=== PATIENT | female | born 1950 | race Caucasian/White ===

== ENCOUNTER 2019-09-29 10:30 | Outpatient (RCR) | payer MEDICARE, SELFPAY ==
--- NOTE | 2019-09-01 09:34 | PTOPEVAL ---
PHYSICAL THERAPY EVALUATION AND PLAN OF CARE 09-01-2019 The PT evaluation was completed for the diagnosis of B LE lymphedema. Her plan of treatment is scheduled for 3x/wk for 5 weeks. Thank you for referring Caridad to [facility]. Please review, sign, date and return this plan of care DEA. I agree with and certify that the following plan of care is medically necessary. Referring Physician Date Attending Provider: Neo Briones MD *PT Outpatient Evaluation Start: 09/01/19 08:09 Therapy Assessment Status Assessment Status Assessment Status Evaluation Outpatient Past Medical History Neurological History Hx Neurological Disorders No Significant History Cardiovascular History Hx Hypertension Yes: meds Respiratory History Hx Respiratory Disorders No Significant History Gastrointestinal History Hx Gall Bladder Disease Yes: surgical removal Genitourinary History Hx Genitourinary Disorders No Significant History Musculoskeletal History Hx Orthopedic Surgery Yes: R total shoulder, B carpal tunnel B bunion surgery Hx Other Musculoskeletal Disorders Yes: to see ortho dr Arvizu for R hip consult; osteopenia Hematological History Hx Hematological Disorders No Significant History Endocrine History Hx Endocrine Disorders No Significant History HEENT History Hx Other HEENT Disorders Yes: sinus issues Other History Hx Other Medical Conditions Yes: wt gain 15-20# in wt in past year Evaluation Information Problem Diagnosis B LE lymphedema Onset Jul 2018 Prior Level of Function Activity Level (Last 3 Months) Occupation retired Hand Dominance Right Activity of Daily Living Ability Independent Indoor/Home Mobility Independent Community Mobility Independent Stairs Ability Independent Functional Cognition (Planning, Shopping Independent , Taking Medications) Cooking Yes Cleaning Yes Laundry Yes Shopping Yes Driving Yes Comments Additional Prior Level of Function problems on stairs and get on/ Comments off floor due to R hip; watch grand children, youngest 2 yr old; assist with transportation, occassional baby sitting; decreased walking due to R hip pain; wear shoe orthotics due to flat feet Pain Assessment Timing of Pain Assessment Timing of Pain Assessment Assessment Pain Scale Pain Scale Used
--- NOTE | 2019-09-25 10:24 | PCPTNOTE ---
PHYSICAL THERAPY PROGRESS REPORT 09-25-2019 Ms. Clark has received 11 PT sessions, from August 31 to today, for the diagnosis of B LE lymphedema. Her treatment has included complete decongestive therapy to R and L LE's: manual lymph drainage, intermittent compression pump, multi layer compression wraps and education for lymphedema care-- skin care, diet monitoring, LE exercises and compression garments. She just has obtained and began wearing 2 days ago: R and L lower leg compression garments 30-40 mmHg LE measurements, 64 cm from the bottom of her leg: R LE: at eval: 812.8 cm; on 09-18-19: 771 cm and 09-22-19: 774 cm; L LE: at eval: 791.1cm; on 09-15-19: 816.8 cm; 09-18-19: 816.8 cm and 09-22-19: 782.3 cm: Today, she reports ankles appear to be larger since wearing the compression garment knee highs: spot measurements taken at start sessio : R LE L LE today 09-22-19 today 09-22-19 figure 8 51.5 52.5 52.2 52 8 25 24.5 25.5 24.5 12 29 26 28 26 She would benefit from a home intermittent compression pump, to assist with management of her R and L LE lymphedema. Caridad also has lymphedema of her L arm and breast, with previous treatment at another facility, and is using a compression sleeve on her L UE. Shivani Infante, PT, CLT
--- NOTE | 2019-09-29 11:41 | PTOPEVAL ---
PHYSICAL THERAPY DISCHARGE 09-29-2019 Caridad has received 13 PT sessions, from August 31 to today for the diagnosis of B LE lymphedema. Compared to the initial evaluation: Circumferential measurement, from bottom of the foot to 64 cm, totals have increased: the R LE by 7.2 cm and L LE by 10.9 cm--BUT, the lower leg up to 40 cm is decreased, then thigh has increased. She has obtained compression knee highs: Mediven plus, 30-40 mmHg, calf high with beaded silicone band, 5 extra wide calf, open toe. She is independent donning/doffing them and is tolerating wearing them without any issues. The integrity of her lower leg skin is improved--without any redness and her ankles are visible. The intermittent home compression pump is in the process of being authorized by her insurance for self management of her lymphedema. She has ordered compression linda- Sigvaris compreshort, size X-large Max, which will assist in maintaining her thigh lipedema/lymphedema. Education has been completed for self manual lymph drainage, monitor her skin, compression garments and LE exercises. The goals were achieved, except for the circumferential measurements. Thank you for referring Caridad Clark to [facility]. Please review, sign, date and return this discharge EDA. I agree with and certify that the following plan of care is medically necessary. Referring Physician Date Referring Provider: Neo Briones MD Document 09/29/19 10:28 DEEPA (Rec: 09/29/19 11:06 DEEPA [id number]) Subjective Information Caridad reports: can see ankles Query Text:As Reported By Patient/ now and do not have buldge Family below knees; skin is not tight anymore; do not have any pain, heavy or ache in legs; very pleased with her legs, doing well with compression socks; and agrees to discharge from PT services; Pain Assessment Timing of Pain Assessment Timing of Pain Assessment Assessment Self Report Self Report Pain Level 0 Pain Score Pain Score 0: Self Report Additional Pain Score Comments no heavy or ache in legs Lymphedema Evaluation Skin Inspection Location Left Lower Extremity,Right Lower Extremity Skin Observations Absence of Leg Hair,Foot Sparing Lymphedema Stage I Skin Inspection Comment B lower legs without any redness of skin, no firmness of tissue over legs; B malleoli visible B thighs soft and fluffy tissue; not tender to touch; LE Circumferential Measurement Right LE Lymphedema Side Right Metatarsal Heads (cm) 22.8 Figure 8 of Ankle (cm) 52.8 8 cm From Bottom of Foot (cm) 25 12 cm From Botto
--- NOTE | 2019-10-09 10:26 | PCPTNOTE ---
Addendum to 08/14/29 PT note: Skin over lower legs with hyperpigmentation and splotchy redness throughout.
--- NOTE | 2019-11-22 10:14 | PCPTNOTE ---
Addendum entered by Shivani Infante, PT 11/23/19 11:43: Caridad also reported having fullness in her abdomen and hips, and more firmness/hardness of the tissue of her thighs. This can be a result of the home pump is pushing the fluid to her abdomen and trunk. Original Note: I talked with Caridad on the phone. She stated that she is using the home basic compression pump, doing her self massage and wearing her LE compression garments for the past month. She measured her LE's at the 3 points that I gave her at the last PT session. She stated that all 3 have increased by ~ 2 cm each. Caridad stated that her arms and legs are more swollen and she is concerned about it and what to do to further prevent any more increase. She had received treatment at another facility for her breast and UE lymphedema, prior to therapy here. Discussed with her to continue as she is doing with her self massage, exercises, pump and compression garment. And that I would be in touch with [facility] [employer] about it. Mrs. Clark would benefit from the Flexitouch intermittent compression pump for her UE's and LE's to assist with managing her chronic lymphedema. Shivani Infante, PT, [facility]
== END 2019-10-02 11:21 | disposition home or self-care (01) ==
LOC: ANHPT 10:30
PROVIDERS: PCP Family Medicine; Referring Provider Family Medicine; Visit Provider Family Medicine
DX: I89.0 Lymphedema, not elsewhere classified (principal)
CPT/HCPCS: 29581; 97140; 97161

== ENCOUNTER 2020-05-22 10:00 | Outpatient (RCR) | payer MEDICARE, SELFPAY ==
--- NOTE | 2020-04-16 12:55 | PTOPEVAL ---
PHYSICAL THERAPY EVALUATION AND PLAN OF CARE 04-16-2020 Thank you for referring Caridad Clark to [facility] for the diagnosis of lymphedema. She has a combination of lipedema/ lymphedema in B UE's and UE's. She is most concerned at this time about her thighs, so treatment was initiated for her LE's and when this treatment is completed, her UE's will be addressed.? Caridad is scheduled to be seen for therapy? 2 x/week for 5 weeks. Please review, sign, date and return this plan of care EDA. I agree with and certify that the following plan of care is medically necessary. Referring Physician Date Attending Provider: Neo Briones MD *PT Outpatient Evaluation Document 04/16/20 09:05 DEEPA (Rec: 04/16/20 10:29 DEEPA [id number]) Therapy Assessment Status Assessment Status Assessment Status Evaluation Outpatient Past Medical History Past Medical History Source of Past Medical History Patient Neurological History Hx Neurological Disorders No Significant History Cardiovascular History Hx Hypertension Yes: meds Respiratory History Hx Respiratory Disorders No Significant History Gastrointestinal History Hx Gall Bladder Disease Yes: surgical removal Genitourinary History Hx Genitourinary Disorders No Significant History Musculoskeletal History Hx Orthopedic Surgery Yes: R total shoulder, B carpal tunnel B bunion surgery Hx Other Musculoskeletal Disorders Yes: sacral illiac pain- seeing ortho for- meloxicam; osteopenia Hematological History Hx Hematological Disorders No Significant History Endocrine History Hx Endocrine Disorders No Significant History HEENT History Hx Other HEENT Disorders Yes: sinus issues Other History Hx Other Medical Conditions Yes: weight has been stable, bloated end day Evaluation Information Problem Diagnosis lymphedema Onset February 13, 2020 Diagnostic Tests X-Rays For This Problem No Prior Level of Function Activity Level (Last 3 Months) Occupation retired, active, watches grandchildren Activity of Daily Living Ability Independent Indoor/Home Mobility Independent Community Mobility Independent Stairs Ability Independent Functional Cognition (Planning, Shopping Independent , Taking Medications) Cooking Yes Cleaning Yes Laundry Yes Shopping Yes Driving Yes Pain Assessment Timing of Pain Assessment Timing of Pain Assessment Assessment Pain Scale Pain Scale Used Numeric (1 - 10) Self Report Pain Assessment Bilateral Leg(s) Reported Pain Level 0 Other Pain Description
--- NOTE | 2020-05-22 16:05 | PTOPEVAL ---
PHYSICAL THERAPY DICHARGE 05-22-2020 Refer to the clinical summary below for her status, compared to the initial evaluation. Thank you for referring Caridad Clark to [facility].? Please review, sign, date and return this discharge EDA. I agree with and certify that the following plan of care is medically necessary. Referring Physician Date Attending Provider: Neo Briones MD PT Outpatient Discharge Document 05/22/20 10:10 DEEPA (Rec: 05/22/20 10:58 DEEPA [id number]) Subjective Information Caridad reports: is Query Text:As Reported By Patient/ comfortable with all that she Family has to do to manage her arm and leg swelling; using her home intermittent compression pump and doing her self massage; the new arm compression sleeves are tight at the top but feel good and supportive at the center part; no issues with redness or skin problems; agree to discharge from PT at this time . Pain Assessment Timing of Pain Assessment Timing of Pain Assessment Assessment Self Report Self Report Pain Level 0 Pain Score Pain Score 0: Self Report Additional Pain Score Comments reports sometimes at the end of the day, stomach is a little bloated from drinking more water; Lymphedema Therapy Skin Inspection Location Left Lower Extremity,Right Lower Extremity Skin Observations Lipedema,Obesity Palpation Findings Warm Skin Temperature Tissue Texture Normal Skin Inspection Comment no redness of the legs; pt wearing R and L UE compression sleeves and R and L knee high compression; using circ aid reduction B upper and lower leg kits for sleeping; also has linda, but has not been wearing, due to them sliding down and have to pull up multiple times during day; discussed with her to try again, since legs have decreased in size, may stay up better and to try to tuck the top under her bra;
== END 2020-05-23 08:20 | disposition home or self-care (01) ==
LOC: ANHPT 10:00
PROVIDERS: PCP Family Medicine; Visit Provider Family Medicine
DX: I89.0 Lymphedema, not elsewhere classified (principal)
CPT/HCPCS: 97110; 97140; 97161

== ENCOUNTER → 2021-07-04 03:56 | Outpatient (CLI) | payer MEDICARE, SELFPAY ==
[2021-07-04 16:40] LABS: Influenza A QL RT-PCR Negative (Negative); Influenza B QL RT-PCR Negative (Negative); SARS-CoV-2 RNA PCR Positive
== END ==
PROVIDERS: PCP Family Medicine; Visit Provider Physician Assistant
DX: U07.1 COVID-19 (principal)
CPT/HCPCS: 87502; C9803; U0003; U0005

== ENCOUNTER 2022-12-11 14:33 | Outpatient (RCR) | payer MEDICARE, SELFPAY ==
--- NOTE | 2022-12-11 16:03 | PTOPEVDC ---
Assessment and note entered by Shivani Infante, PT Thank you for referring Caridad Clark to [facility].? An evaluation has been completed. No further treatment is needed. Evaluation Information Assessment Status Evaluation Diagnosis lymphedema Subjective Information want to get a recheck--measure arms and legs to check and see what size need for ordering new garments; at home, using the home compression pump for her arms and legs every day; have stopped wearing the arm compression sleeves- talked to her oncologist about and they agreed; is wearing compression calf high garment over both legs; doing exercises for fitness, have lost 30# in the past 1 & 1/2 years; Reported Pain Level Pain Score Self Report Additional Pain Score Comments no pain in arms or legs, but legs are heavy Assessment PT Clinical Summary Caridad has the diagnosis of lymphedema. She has been here in the past and using compression lower leg garments and home pump. Reports she has lost weight and is continuing to work for more weight loss. And doing leg exercises for fitness and being as active as she can, with grand children. With the evaluation: the circumferential measurements of her legs have decreased with comparison to the last measurements here in May 2020: R by 79.2 cm and L by 79.8 cm; she continues to have increase adipose tissue with fluffy texture over both thighs--discussed and educated on compression for thighs. Her arms do not have any discoloration or fibrotic tissue. She was measured for new compression thigh high and calf high garments; she needs a smaller calf garment than she has currently. Reviewed with her the lymphedema care routine she is using now and discussed skin care with sun screen for arms, thigh compression garment and possible need for 20-30 mmHg for more comfort over the thighs. She is doing well managing her lymphedema. Education completed and she has a good understanding. Discharge PT services. Plan of Care PT Services Indicated No
== END 2022-12-16 12:13 | disposition home or self-care (01) ==
LOC: ANHPT 14:33
PROVIDERS: PCP Family Medicine; Visit Provider Family Medicine
DX: I89.0 Lymphedema, not elsewhere classified (principal)
CPT/HCPCS: 97140; 97161

== ENCOUNTER 2023-04-26 10:41 | Outpatient (CLI) | payer MEDICARE, SELFPAY | END 2023-04-26 10:42 | disposition home or self-care (01) | PROVIDERS: PCP Family Medicine; Visit Provider Family Medicine | DX: H90.3 Sensorineural hearing loss, bilateral (principal) | CPT/HCPCS: 92557; 92567 ==

== ENCOUNTER 2023-07-01 09:30 | Outpatient (RCR) | payer MEDICARE, SELFPAY | END 2023-08-12 23:59 | disposition home or self-care (01) | LOC: ANHAUDASC 09:30 | PROVIDERS: PCP Family Medicine; Visit Provider Family Medicine | DX: Z46.1 Encounter for fitting and adjustment of hearing aid (principal) | CPT/HCPCS: 99199; V5261 ==

== ENCOUNTER 2023-07-26 00:17 | Day surgery (SDC) | payer MEDICARE, SELFPAY ==
[2023-06-30 15:17] VITALS: BMI 36.4
--- NOTE | 2023-07-23 11:11 | SUR.PREOP ---
Patient called regarding upcoming procedure. Voicemail left regarding appointment times.
[2023-07-26 09:15] VITALS: BP 127/51; PULSE 72; RESP 20; TEMP 36; O2SAT 100; BMI 34.5
[2023-07-26] MEDS: LACTATED RINGERS 1,000 ML 150 ML IV CONT (09:32)
--- NOTE | 2023-07-26 09:37 | WPDANESEPPF ---
Anes - Initial Pre Proc Eval Procedure: Operation Date: 07/26/23 10:30 Proposed Procedures p Colonoscopy - Jaime Chandler MD Date/Time: 07/26/23 09:37 Surgeon: Jaime Chandler MD Pre Op Diagnosis: History colon polyps Patient Data Age: 73 Gender: F Height: 1.55 m Weight: 82.9 kg Last Vital Signs Temp 96.8 F L 07/26/23 09:15 Pulse 72 07/26/23 09:15 Resp 20 07/26/23 09:15 BP 127/51 L 07/26/23 09:15 Pulse Ox 100 07/26/23 09:15 O2 Del Method Room Air 07/26/23 09:15 Allergies Allergy/AdvReac Type Severity Reaction Status Date / Time clavulanic acid Allergy Severe Hives / Verified 07/26/23 09:13 Red Face amoxicillin Allergy Unknown Hives Verified 07/26/23 09:13 Home Medications Medication Instructions Recorded Confirmed Type calcium citrate 315 mg-vitamin D3 1 tablet PO DAILY 04/07/19 06/30/23 History 5 mcg (200 unit) tablet (Calcium Citrate + D) cholecalciferol (vitamin D3) 25 1,000 unit PO DAILY 04/07/19 06/30/23 History mcg (1,000 unit) capsule glucosamine-chondroitin 250 mg-200 2 tablet PO DAILY 04/07/19 06/30/23 History mg tablet (Osteo Bi-Flex) letrozole 2.5 mg tablet 2.5 mg PO DAILY 04/07/19 06/30/23 History melatonin 1 mg tablet 1 mg PO DAILY 12/13/19 06/30/23 History meloxicam 15 mg tablet 15 mg PO DAILY 12/13/19 06/30/23 History omeprazole 40 mg capsule,delayed See Rx Instructions .Route 11/24/22 06/30/23 Rx release .COMPLEX #90 caps benazepril 40 mg tablet 40 mg PO DAILY #90 tabs 03/23/23 06/30/23 Rx benzonatate 200 mg capsule 200 mg PO TID PRN cough #30 caps 03/23/23 06/30/23 Rx rosuvastatin 5 mg tablet (Crestor) 5 mg PO DAILY #90 tabs 03/23/23 06/30/23 Rx hydrochlorothiazide 25 mg tablet 25 mg PO DAILY #90 tabs 05/14/23 06/30/23 Rx aspirin 81 mg capsule 81 mg PO DAILY 06/30/23 06/30/23 History clindamycin HCl 150 mg capsule 150 mg PO DAILY 06/30/23 07/26/23 History Patient hx anesthesia problems: none Family hx anesthesia problems: none Results Review: All pre-operative results and documents have been reviewed as part of the pre-operative evaluation. [facility] Past Medical History Medical History Anxiety Chronic acquired lymphedema CKD (chronic kidney disease), stage III Depression Essential (primary) hypertension GERD (gastroesophageal reflux disease) HLD (hyperlipidemia) Malignant neoplasm of left female breast Obesity Surgical History Surgical History History of bunionectomy of both great toes History of varicose veins Status post carpal tunnel release Status post laparoscopic cholecystectomy Status post tubal ligation Family History Family History Mother Hypertension Family history of coronary artery disease Family history of malignant neoplasm of breast in first degree relative Father Family history of malignant neoplasm Sibling Hypertension Social History Social History Smoking status: Never smoker Second hand tobacco smoke exposure: No Alcohol intake: never Substance use: never Substance use type: does not use Living arrangements: with family Occupation/Education: retired Gender identity (if verbalized by the patient): Female Sexual Orientation (if Verbalized by the Patient): Straight or Heterosexual Spiritual care concerns: No Anes - Eval Final PreProcedure Day of Procedure 07/26/23 09:37 Patient weight: obese Heart: regular rate and rhythm Lungs: clear to auscultation Airway: Mallampati scale class II Neurological: alert and oriented Last oral intake: >/= 8 hours ASA classification: III Emergent: no Anesthetic plan: proceed Anesthesia type and monitoring: general GIVS and standard monitoring Results Review: All pre-operative results an
--- NOTE | 2023-07-26 10:01 | PM.HPGS ---
History of Present Illness History of Present Illness Consent: Risks, benefits, and alternatives have been discussed and questions answered. Patient agrees to proceed with procedure. Chief complaint: History colon polyps Narrative: Caridad Clark is a 73 year old female with colon polyp in 2018 Review of Systems Constitutional: Constitutional: Denies headache(s) and Denies weakness Eyes: Eyes: Denies blurry vision ENT: Reports Normal hearing present, Denies headache(s) and Denies neck pain Cardiovascular: Cardiovascular: Denies chest pain and Denies dyspnea Respiratory: Respiratory: Denies dyspnea Gastrointestinal: Gastrointestinal: Reports no additional gastrointestinal complaints Genitourinary: Genitourinary: Denies dysuria Musculoskeletal: Musculoskeletal: Denies neck pain Integumentary/Breasts: Skin/Breast: Denies dry skin Neurologic: Reports Normal hearing present, Denies headache(s) and Denies weakness Psychiatric: Psychiatric: Denies anxiety Endocrine: Endocrine: Denies change in body appearance Hematologic/Lymphatic: Hematologic/Lymphatic: Denies easy bleeding Allergic/Immunologic: Allergic/Immunologic: Denies urticaria PMFSH Past Medical History Medical History Anxiety Chronic acquired lymphedema CKD (chronic kidney disease), stage III Depression Essential (primary) hypertension GERD (gastroesophageal reflux disease) HLD (hyperlipidemia) Malignant neoplasm of left female breast Obesity Surgical History Surgical History History of bunionectomy of both great toes History of varicose veins Status post carpal tunnel release Status post laparoscopic cholecystectomy Status post tubal ligation Family History Family History Mother Hypertension Family history of coronary artery disease Family history of malignant neoplasm of breast in first degree relative Father Family history of malignant neoplasm Sibling Hypertension Social History Social History Smoking status: Never smoker Second hand tobacco smoke exposure: No Alcohol intake: never Substance use: never Substance use type: does not use Living arrangements: with family Occupation/Education: retired Gender identity (if verbalized by the patient): Female Sexual Orientation (if Verbalized by the Patient): Straight or Heterosexual Spiritual care concerns: No Meds Home Medications and Allergies Home Medications Medication Instructions Recorded Confirmed Type calcium citrate 315 mg-vitamin D3 1 tablet PO DAILY 04/07/19 06/30/23 History 5 mcg (200 unit) tablet (Calcium Citrate + D) cholecalciferol (vitamin D3) 25 1,000 unit PO DAILY 04/07/19 06/30/23 History mcg (1,000 unit) capsule glucosamine-chondroitin 250 mg-200 2 tablet PO DAILY 04/07/19 06/30/23 History mg tablet (Osteo Bi-Flex) letrozole 2.5 mg tablet 2.5 mg PO DAILY 04/07/19 06/30/23 History melatonin 1 mg tablet 1 mg PO DAILY 12/13/19 06/30/23 History meloxicam 15 mg tablet 15 mg PO DAILY 12/13/19 06/30/23 History omeprazole 40 mg capsule,delayed See Rx Instructions .Route 11/24/22 06/30/23 Rx release .COMPLEX #90 caps benazepril 40 mg tablet 40 mg PO DAILY #90 tabs 03/23/23 06/30/23 Rx benzonatate 200 mg capsule 200 mg PO TID PRN cough #30 caps 03/23/23 06/30/23 Rx rosuvastatin 5 mg tablet (Crestor) 5 mg PO DAILY #90 tabs 03/23/23 06/30/23 Rx hydrochlorothiazide 25 mg tablet 25 mg PO DAILY #90 tabs 05/14/23 06/30/23 Rx aspirin 81 mg capsule 81 mg PO DAILY 06/30/23 06/30/23 History clindamycin HCl 150 mg capsule 150 mg PO DAILY 06/30/23 07/26/23 History Allergies Allergy/AdvReac Type Severity Reaction Status Date / Time clavulanic acid Allergy Severe Hives / Verified 07/26/23 09:13 Red Face am
[2023-07-26 10:24] VITALS: BP 95/39; PULSE 70; RESP 20; O2SAT 99
[2023-07-26 10:34] VITALS: BP 100/45; PULSE 60; RESP 20; O2SAT 99
[2023-07-26 10:44] VITALS: BP 114/54; PULSE 65; RESP 18; O2SAT 99
== END 2023-07-26 10:57 | disposition home or self-care (01) ==
PROVIDERS: PCP Family Medicine; Visit Provider Internal Medicine Gastroenterology
PROC: 0DJD8ZZ Inspection of Lower Intestinal Tract, Via Natural or Artificial Opening Endoscopic (ICD-10-PCS; CPT 45378; principal; 2023-07-26 10:30)
DX: Z12.11 Encounter for screening for malignant neoplasm of colon (principal); D12.3 Benign neoplasm of transverse colon; K64.8 Other hemorrhoids; E78.5 Hyperlipidemia, unspecified; I12.9 Hypertensive chronic kidney disease with stage 1 through stage 4 chronic kidney disease, or unspecified chronic kidney disease; N18.30 Chronic kidney disease, stage 3 unspecified; F41.9 Anxiety disorder, unspecified; F32.A Depression, unspecified; K21.9 Gastro-esophageal reflux disease without esophagitis; I89.0 Lymphedema, not elsewhere classified; E66.9 Obesity, unspecified; Z68.34 Body mass index [BMI] 34.0-34.9, adult; Z79.82 Long term (current) use of aspirin; Z98.890 Other specified postprocedural states; Z90.49 Acquired absence of other specified parts of digestive tract; Z85.3 Personal history of malignant neoplasm of breast; Z86.010 Personal history of colon polyps; Z82.49 Family history of ischemic heart disease and other diseases of the circulatory system; Z80.3 Family history of malignant neoplasm of breast
CPT/HCPCS: 45385; 88305; J2371; J2704; J7120

== ENCOUNTER 2024-08-03 16:29 | Outpatient (CLI) | payer MEDICARE, SELFPAY ==
--- OUTSIDE RECORDS SUMMARY | 2024-08-03 16:32 | XMS_ITS | Encounter Summary ---
Author Organization [facility] Address 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 Name Role Phone Neo Briones MD Primary Care Provider [phone] Encounter Details Date Type Department Care Team (Late st Contact Info) Description 08/17/2018 Chart Note [facility] Radiation Therapy [address] [place] [address] [place] [address] [place] [address] Social History Tobacco Use Types Packs/Day Years Used Date Smoking Tobacco: Never Smokeless Tobacco: Never Alcohol Use Standard Drinks/Week Comments No 0 (1 standard drink = 0.6 oz pur e alcohol) Comments No Sex and Gender Information Value Date Recorded Sex Assigned at Not on file 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 Gender Identity Not on file Sexual Orientation Not on file Occupation Industry Job Start Date Job End Date Not on file Not on file Not on file Not on file documented as of this encounter Plan of Treatment Upcoming Encounters Date Type Department Care Team (Late st Contact Info) Description 08/22/2024 10:45 AM CDT Appointment [facility] Domenico James [address] [place] [address] Liliane Cruz, ICT QUALITY ASSURANCE ENGINEER [address] [place] [address] 08/22/2024 11:45 AM CDT Office Visit [facility] Breast Surgery [place] Erika [address] [facility] [address] [place] [address] Liliane Cruz, ICT QUALITY ASSURANCE ENGINEER [address] [facility] [address] [place] [address] 09/27/2024 10:30 AM CDT Office Visit [facility] REGISTERED TRAVEL NURSE - [address] [facility] [address] [address] Ayana Dillon NP [address] [facility] [address] [place] [address] 11/20/2024 10:00 AM CDT Office Visit [facility] Oncology and Hematology Domenicohyun James [address] [facility] [address] [place] [address] Marylin Corcoran MD [address] [facility] [address] [place], [place] [address] 11/20/2024 10:30 AM CDT Appointment [facility] [address] [facility] [address] [place] [phone] Marylin Corcoran MD [address] 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
--- OUTSIDE RECORDS SUMMARY | 2024-08-03 16:32 | XMS_ITS | Encounter Summary ---
Author Organization [facility] Address 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 Gender Identity Not on file Sexual Orientation Not on file documented as of this encounter Plan of Treatment Upcoming Encounters Date Type Department Care Team (Late st Contact Info) Description 08/22/2024 10:45 AM CDT Appointment [facility] [address] [place] [address] Liliane Cruz, INSURANCE AUDITOR [address] [place] [address] 08/22/2024 11:45 AM CDT Office Visit [facility] Breast Surgery Sammie James [address] [place] [address] Liliane Cruz, INSURANCE AUDITOR [address] [place] [address] 09/27/2024 10:30 AM CDT Office Visit [facility] MILL ORDER SCHEDULER [address] [facility] [address] [address] Ayana Dillon NP [address] [facility] [address] [place] [address] 11/20/2024 10:00 AM CDT Office Visit [facility] Oncology and Hematology [facility] [address] [facility] [address] [place] [address] Marylin Corcoran MD [address] [facility] [address] [place] [address] 11/20/2024 10:30 AM CDT Appointment [facility] [address] [facility] [address] [place] [address] Marylin Corcoran MD [address] [facility] [address] [place] [address] Injection documented as of this encounter Procedures Procedure Name Priority Date/Time Associated Diagnosis Comments PATHOLOGY Routine 11/27/2008 8:34 AM CDT CBC WITH DIFFERENTIAL Routine 11/23/2008 1:50 PM CDT COMPREHENSIVE METABOLIC PANEL Routine 11/23/2008 1:50 PM CDT documented in this encounter Results * PATHOLOGY (11/27/2008 8:34 AM CDT) FINAL REPORT [facility] [address] [place], [place] [address] Patient: CARIDAD CLARK : 1950 Procedure Date: 11/27/2008 Accession Date: 11/27/2008 Case No: [id number] Ordering Dr: BASSAM GUO Case types AW, BW, FW, NW and SH are performed [place] [facility] [place] [place] SURGICAL PATHOLOGY & NON-GYNECOLOGIC CYTOPATHOLOGY REPORT DIAGNOSIS GALLBLADDER, ENDOSCOPIC CHOLECYSTECTOMY: - CHOLESTEROLOSIS. - MILD CHRONIC INFLAMMATION. Specimen Description: Gallbladder. Operative Procedure: Endoscopic cholecystectomy. Patient Information/Histor y/Diagnosis: Gallstones. Gross: Received in one container labeled Caridad Clark, gallbladder is a 7.0 x 2.8 x 0.6-cm gallbladder with a 3.5-cm incision on the serosal surface. The serosa is green-bryant and glistening. No stones are identified in the lumen of the gallbladder or separately in the container. The mucosa is green-bryant with scattered yellow speckling. The cystic duct is patent. The average wall thickness is 0.1 cm. The cystic duct margin and customer service representative teller sections of gallbladder are submitted in block A1. MMC/ANGELIQUE 11.27.2008 01:13 pm Microscopic: The section is labeled [id number], Caridad Clark The sections of the gallbladder display focal cholesterolosis and mild chronic inflammation. BBK/PHC 11.28.2008 10:23 am Staging Form: No. ELECTRONIC SIGNATURE FOR RICHARD LEE M.D.- 11/28/08 12:32 pm INTERFACE SYSTEM 11/27/2008 8:34 AM CDT us Bassam Guo MD PATHOLOGY/CYTOLOGY ORDERABLES Final Result INTERFACE SYSTEM Refer to clinic/hospital department * COMPREHENSIVE METABOLIC PANEL (11/23/2008 1:50 PM CDT) CO2 27 22 - 30 mmol/L [facility] TOTAL PROTEIN 6.5 6.3 - 8.6 g/dL [facility] POTASSIUM 3.8 3.5 - 4.9 mmol/L [facility] GLUCOSE 75 65 - 99 mg/dL [facility] AST 22 12 - 32 U/L [facility] CALCIUM 9.5 8.6 - 10.2 mg/dL [facility] ALBUMIN 4.3 3.4 - 4.8 g/dL [facility] CHLORIDE 103 96 - 108 mmol/L [facility] CREATININE 0.85 0.51 - 0.95 mg/dL [facility] ALT 15 0 - 31 U/L [facility] BUN 15 6 - 20 mg/dL [facility] SODIUM 139 135 - 145 mmol/L [facility] ALKALINE PHOSPHATASE 71 35 - 104 U/L [facility] BILIRUBIN TOTAL 0.5 0.2 - 1.0 mg/dL [facility] GFR, >60 >=60 mL/min/1.7 sq meter [facility] GFR >60 >=60 mL/min/1.7 sq meter [facility] Comment: Modification of Diet in Renal Disease (MDRD) study formula. Estimated GFR rate interpretative information for both Americans and non- Americans is available on the [facility] Intranet at: [email or web address] Select: Lab Policies and Procedures Select: Reference Ranges - GFR 11/23/2008 1:50 PM CDT 11/23/2008 3:43 PM CDT Bassam Guo MD CHEMISTRY ORDERABLES Edited INTERFACE SYSTEM Refer to clinic/hospital department [facility] CLIA# [id number] [address] [place] [address] * CBC WITH DIFFERENTIAL (11/23/2008 1:50 PM CDT) WBC 5.2 4.0 - 9.8 K/uL [facility] MCH 30.9 27.2 - 32.6 pg [facility] MPV 11.4 9.3 - 12.4 fL [facility] HEMATOCRIT 41.6 35.5 - 44.0 % [facility] RDW-STDEV 41.7 37.1 - 48.7 fL [facility] RBC 4.53 3.90 - 4.90 M/uL [facility] MCHC 33.7 31.5 - 35.5 % [facility] MCV 91.8 82.0 - 99.0 fL [facility] PLATELETS 191 140 - 350 K/uL [facility] HEMOGLOBIN 14.0 11.8 - 14.8 g/dL [facility] RDW 12.4 11.5 - 14.5 % [facility] NEUTROPHILS 57 45 - 70 % [facility] BASOPHILS 0 0 - 2 % [facility] BASOPHILS ABSOLUTE 0.02 0.00 - 0.20 K/uL [facility] LYMPHOCYTES 31 16 - 45 % [facility] MONOCYTE ABSOLUTE 0.47 0.10 - 1.30 K/uL [facility] NEUTROPHIL ABSOLUTE 2.94 1.90 - 7.00 K/uL [facility] MONOCYTES 9 3 - 13 % [facility] EOSINOPHILS 3 0 - 7 % [facility] EOSINOPHIL ABSOLUTE 0.14 0.00 - 0.70 K/uL [facility] LYMPHOCYTE ABSOLUTE 1.62 0.70 - 4.50 K/uL [facility] 11/23/2008 1:50 PM CDT 11/23/2008 3:43 PM CDT us Bassam Guo MD HEMATOLOGY ORDERABLES Edited INTERFACE SYSTEM Refer to clinic/hospital department [facility] CLIA# [id number] [address] [place] [address] documented in this encounter Visit Diagnoses Diagnosis Calculus of gallbladder with other cholecystitis, without mention of obstruction documented in this encounter Care Teams Can Pusher Relationship Specialty Start Date End Date Neo Briones MD [address] [facility] [address] [place] [address] PCP - General Family Practice 07/13/18 documented as of this encounter
--- OUTSIDE RECORDS SUMMARY | 2024-08-03 16:32 | XMS_ITS | Clinical Summary ---
Author Organization [facility] Address [address] [place] [address] Care Team Providers Care Precision Optics Technician Name Role Phone Neo Briones MD Primary Care Provider Allergies Active Allergy Reactions Criticality Noted Date Comments Amoxicillin-Pot Clavulanate Hives Medium Medications benazepril (LOTENSIN) 20 mg tabletIndication s:hypertension Take 20 mg by mouth every morning Active hydroCHLOROthiaz phil (HYDRODIURIL) 25 mg tablet Take 25 mg by mouth every morning Active denosumab (PROLIA) 60 mg/mL syringe Prolia every 6 months Active calcium carbonate (OS-GIL) 1,500 mg (600 mg of elemental calcium) tablet Take 600 mg by mouth every morning 9 Active cholecalciferol (VITAMIN D-3) 2,000 unit tablet Take 2,000 Units by mouth every morning Active letrozole (FEMARA) 2.5 mg tablet Take 2.5 mg by mouth every morning 3 9 Active LORazepam (ATIVAN) 0.5 mg tablet lorazepam 0.5 mg tablet as needed 9 Active vitamin E 400 unit capsule Take 400 Units by mouth every morning Active ascorbic acid (ascorbic acid) 500 mg tablet,chewable Take 500 mg by mouth every morning Active diphenhydrAMINE (BENADRYL) 25 mg capsule Take 25 mg by mouth every 6 (six) hours as needed for allergies Active silver sulfadiazine (SILVADENE, SSD) 1 % cream Apply 1 application topically daily Active oxyCODONE (ROXICODONE) 5 mg immediate release tabletIndication s:Pain Take 1-2 tablets (5-10 mg total) by mouth every 4 (four) hours as needed for pain 40 tablet 9 Active Additional Information Patient not taking.Reported on 11/02/2019 acetaminophen (TYLENOL) 325 mg tabletIndication s:Pain Take 2 tablets (650 mg total) by mouth every 6 (six) hours as needed for pain 100 tablet 1 9 Active Additional Information Patient not taking.Reported on 11/02/2019 docusate sodium (COLACE) 100 mg capsuleIndicatio ns:constipation Take 1 capsule (100 mg total) by mouth 2 (two) times a day 30 capsule 1 9 Active Additional Information Patient not taking.Reported on 11/02/2019 aspirin 325 mg tabletIndication s:prevention of thrombosis Take 1 tablet (325 mg total) by mouth 2 (two) times a day 28 tablet 9 Active clindamycin (CLEOCIN) 300 mg capsule TAKE TWO CAPSULES ONE HOUR PRIOR TO DENTAL PROCEDURE 10 capsule 9 Active meloxicam (MOBIC) 15 mg tablet TAKE 1 TABLET BY MOUTH EVERY DAY 90 tablet 3 4 Active Active Problems Problem Noted Date Diagnosed Date Class 3 severe obesity with body mass index (BMI) of 40.0 to 44.9 in adult 01/04/2019 Hypertension 01/04/2019 Risk factors for obstructive sleep apnea 019 Instability of right shoulder joint 12/05/2018 Overview (12/05/2018): Added automatically from request for surgery [id number] Instability of shoulder joint 10/23/2016 Pain in shoulder 07/31/2016 Surgical History Surgery Date Site/Laterality Comments BREAST LUMPECTOMY SHOULDER ARTHROSCOPY COLONOSCOPY CENTRAL LINE PLACEMENT > 5 YEARS 01/04/2019 N/A CATARACT EXTRACTION Bilateral SHOULDER SURGERY Right right reverse total shoulder BUNIONECTOMY Bilateral CARPAL TUNNEL RELEASE Bilateral CHOLECYSTECTOMY Medical History Medical History Date Comments Cancer (CMS/HCC) (HCC) Hypertension History of radiation therapy 10/10/2018 Obesity Lymphedema Family History Medical History Relation Name Comments Hypertension Father Family history of hypertension - (Added by TW Conv) Cancer Mother Family history of malignant neoplasm - (Added by TW Conv) Heart disease Mother Family history of cardiac disorder - (Added by TW Conv) Hypertension Mother Family history of hypertension - (Added by TW Conv) Hypertension Other Family history of hypertension - (Added by TW Conv) Anesthesia problems Neg Hx Relation Name Status Comments Father Mother Other Social History Tobacco Use Types Packs/Day Years Used Date Smoking Tobacco: Never Smokeless Tobacco: Never Alcohol Use Standard Drinks/Week Comments Never 0 (1 standard drink = 0.6 oz pur e alcohol) AUDIT-C Answer Date Recorded Frequency of Alcohol Consumption Never 01/04/2019 Average Number of Drinks Not on file 019 Frequency of Binge Drinking Not on file 12/13 Comments No Sex and Gender Information Value Date Recorded Sex Assigned at Not on file Legal Sex Female 3:34 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 Gender Identity Not on file Sexual Orientation Not on file Obstetrics History Last Filed Vital Signs Vital Sign Reading Time Taken Comments Blood Pressure 142/70 01/06/2019 12:27 PM CDT Pulse 80 01/06/2019 12:27 PM CDT Temperature 36.5 C (97.7 F) 11/02/2019 10:23 AM CDT Respiratory Rate 18 01/06/2019 12:27 PM CDT Oxygen Saturation 97% 01/06/2019 12:27 PM CDT Inhaled Oxygen Concentration - - Weight 104.3 kg (230 lb) 11/02/2019 10:23 AM CDT Height 154.9 cm (5' 1 ) 11/02/2019 10:23 AM CDT Body Mass Index 43.46 11/02/2019 10:23 AM CDT Plan of Treatment Not on file Medical Devices Implanted Type Area Online Marketing Manager Device Identifier Shelf Expiration Date Model / Serial / Lot [employer] [id number] Comprehensive Taper Adapter 25mm Mini Baseplate Glenoid Reverse - [id number] Implanted:Qty: 1 on 01/05/2019 by Abe Banuelos MD at [facility] Right: Shoulder [employer] [id number] 11/30/2028 [id number] / / [id number] [employer] [id number] Comprehensive 6.5mm 25mm Central Hexagonal 3.5mm Screw Bone - [id number] Implanted:Qty: 1 on 01/05/2019 by Abe Banuelos MD at [facility] Right: Shoulder [employer] [id number] 12/02/2028 [id number] / / [id number] [employer] [id number] Comprehensive 4.75mm 20mm Fix Angle Lock Hexagonal 3.5mm Screw - [id number] Implanted:Qty: 1 on 01/05/2019 by Abe Banuelos MD at [facility] Right: Shoulder [employer] [id number] 10/28/2028 [id number] / / [id number] [employer] [id number] Comprehensive 4.75mm 30mm Fix Angle Lock Hexagonal 3.5mm Screw - [id number] Implanted:Qty: 1 on 01/05/2019 by Abe Banuelos MD at [facility] Right: Shoulder [employer] [id number] 11/28/2028 [id number] / / [id number] [employer] [id number] Comprehensive Versa-Dial 36mm Glenosphere Color Coded Shoulder +3 - [id number] Implanted:Qty: 1 on 01/05/2019 by Abe Banuelos MD at [facility] Right: Shoulder [employer] [id number] 12/01/2028 [id number] / / [id number] [employer] [id number] 36mm Reverse Humerus 7d +0mm Offset Standard Liner Shoulder - [id number] Implanted:Qty: 1 on 01/05/2019 by Abe Banuelos MD at [facility] Right: Shoulder [employer] [id number] 12/11/2026 [id number] / / [id number] [employer] [id number] 10mm 130mm Shoulder Stem Humeral Trabecular Metal Tivanium - [id number] Implanted:Qty: 1 on 01/05/2019 by Abe Banuelos MD at [facility] Right: Shoulder [employer] [id number] 09/11/2028 [id number] / / [id number] Explanted Type Area Online Marketing Manager Device Identifier Shelf Expiration Date Model / Serial / Lot [employer] [id number] Blade 3/32in 9in 2 Trocar Pin Fixation Nonsterile - [id number] Explanted:Qty: 1 on 01/05/2019 by Abe Banuelos MD at [facility] Right: Shoulder [employer] [id number] S / / Insurance MEDICARE SOLUTIONS MEDICARE SOLUTIONS Advance Directives For more information, please contact: [phone] * Full Code (Latest Code Status on File) Date Activated Date Inactivated Comments 01/05/2019 6:26 PM 01/06/2019 6:32 PM * Full Code Date Activated Date Inactivated Comments 01/04/2019 9:18 AM 01/04/2019 3:45 PM Care Teams Precision Optics Technician Relationship Specialty Start Date End Date Neo Briones MD [address] [facility] [address] [facility] [address] [place] [address] PCP - General 08/12/16
--- OUTSIDE RECORDS SUMMARY | 2024-08-03 16:32 | XMS_ITS | Clinical Summary ---
Author Organization [facility] Address [address] [facility] [place] [address] Care Team Providers Care Metallurgy Laboratory Technician Name Role Phone Neo Briones MD Primary Care Provider Source Comments [facility],non-owned Affiliates and Associated Physician Practices is amultiple site organization consisting of ambulatory clinics and hospital sitesin [place], [place], [place] and [place]. This disclosure is being madepursuant to the Care Everywhere program and may not contain all information available regarding this patient. Last updated 18.[facility] Allergies Active Allergy Reactions Criticality Noted Date Comments Amoxicillin-Pot Clavulanate Urticaria Medium 08/12/19 12 Medications * Be aware that medications may not be up to date on this document. Alwaysverify current medications with the patient. Medication Sig Dispensed Refills Start Date End Date Status ascorbic acid (VITAMIN C) 500 MG tablet Take 500 mg by mouth once daily Active calcium carbonate (CALCIUM 600) 600 MG tablet Take 600 mg by mouth once daily 10/14/2018 Active Vitamin D3 (CHOLECALCIFEROL) 50 MCG (2000 UT) capsule Take 2,000 Units by mouth once daily Active vitamin E (TOCOPHERYL) 400 UNIT capsule Take 400 Units by mouth once daily Active benazepril (LOTENSIN) 20 MG tablet benazepril 20 mg tablet A ctive clindamycin (CLEOCIN) 300 MG capsule TAKE TWO CAPSULES ONE HOUR PRIOR TO DENTAL PROCEDURE 04/12/2019 Active denosumab (PROLIA) 60 MG/ML SC injection Prolia every 6 months A ctive hydroCHLOROthiazi de (HYDRODIURIL) 25 MG tablet hydrochlorothiazide 25 mg tablet 05/18/2018 Active letrozole (FEMARA) 2.5 MG tablet letrozole 2.5 mg tablet 10/12/2018 A ctive LORazepam (ATIVAN) 0.5 MG tablet lorazepam 0.5 mg tablet 06/29/2018 A ctive Misc Natural Products (GLUCOSAMINE CHONDROITIN ADV) TABS Take 2 tablets by mouth once daily Active aspirin EC (ECOTRIN) 81 MG tablet Take 81 mg by mouth once daily Active Active Problems Problem Noted Date Diagnosed Date Lymphedema of both lower extremities 01/21/2020 Morbid obesity 01/21/2020 Leg swelling 01/21/2020 Social History Tobacco Use Types Packs/Day Years Used Date Smoking Tobacco: Never Smokeless Tobacco: Never Alcohol Use Standard Drinks/Week Comments Never 0 (1 standard drink = 0.6 oz pur e alcohol) AUDIT-C Answer Date Recorded Q1: How often do you have a drink containing alc ohol? Never 11/21/2019 Average Number of Drinks Not on file 020 Frequency of Binge Drinking Not on file 02/2020 Sex and Gender Information Value Date Recorded Sex Assigned at Not on file Gender Identity Not on file Sexual Orientation Not on file Last Filed Vital Signs Vital Sign Reading Time Taken Comments Blood Pressure 169/76 11/21/2019 2:13 PM CDT Pulse 80 11/21/2019 2:13 PM CDT Temperature 36.8 C (98.3 F) 11/21/2019 2:13 PM CDT Respiratory Rate - - Oxygen Saturation 96% 11/21/2019 2:13 PM CDT Inhaled Oxygen Concentration - - Weight 112 kg (247 lb) 11/21/2019 2:13 PM CDT Height 154.9 cm (5' 1 ) 11/21/2019 2:13 PM CDT Body Mass Index 46.67 11/21/2019 2:13 PM CDT Plan of Treatment Health Maintenance Due Date Last Done Comments BONE DENSITY TESTING 1950 COLOGUARD (AGES 45-75) - COL ON CA SCREENING 1950 COLON MONITORING 1950 COLONOSCOPY - COLON CA SCREENING 1950 CT COLONOGRAPHY - COLON CA SCREENING 1950 Colorectal Cancer Screening 1950 FIT - COLON CA SCREENING 1950 FLEX SIG - COLON CA SCREENING 1950 LIPID TESTING 1950 MAMMOGRAM 1950 HEPATITIS C SCREENING 01/15/1970 DTAP/TDAP/TD VACCINES (1 - Tdap) 01/19/1971 PNEUMOCOCCAL VACCINE 50+ (1 of 1 - PCV) 01/19/2002 ZOSTER VACCINE (1 of 2) 01/19/2002 Respiratory Syncytial Virus (RSV) Vaccine Pt: or over 60 yrs (1 - Risk 60-74 years 1-dose series) 2012 SCREENING FOR DIABETES 11/21/2019 COVID-19 VACCINE (1 - 2023-2 5 season) 2024 INFLUENZA VACCINE (#1) 2024 DEPRESSION SCREENING 06/14/2024 MEDICARE AWV CALENDAR YEAR 2024 HEPATITIS B VACCINE Aged Out No longe r eligible based on patient's age to complete this topic HIB VACCINE Aged Out No longer eligi ble based on patient's age to complete this topic HPV VACCINE Aged Out No longer eligi ble based on patient's age to complete this topic MENINGOCOCCAL (Group B) VACCINE Aged Out No longer eligible based on patient's age to complete this topic MENINGOCOCCAL VACCINE Aged Out No orin silvina eligible based on patient's age to complete this topic Care Teams Metallurgy Laboratory Technician Relationship Specialty Start Date End Date Neo Briones MD [address] [place] [address] PCP - General 01/13/18
--- OUTSIDE RECORDS SUMMARY | 2024-08-03 16:32 | XMS_ITS | Referral Summary ---
Author Organization [facility] Address [address] [place] [address] Care Team Providers Care Potato Chip Frier Name Role Phone Neo Briones MD Primary Care Provider [phone] Source Comments [facility],non-owned Affiliates and Associated Physician Practices is amultiple site organization consisting of ambulatory clinics and hospital sitesin [place], [place], [place] and [place]. This disclosure is being madepursuant to the Care Everywhere program and may not contain all information available regarding this patient. Last updated 18.[facility] Allergies Active Allergy Reactions Criticality Noted Date [...] 11/21/2019 2:13 PM CDT Plan of Treatment Not on file Care Teams Potato Chip Frier Relationship Specialty Start Date End Date Neo Briones MD [address] [place] [address] PCP - General 01/13/18
--- OUTSIDE RECORDS SUMMARY | 2024-08-03 16:32 | XMS_ITS | Clinical Summary ---
Author Organization [facility] Address [address] [place] [address] Phone Care Team Providers Care Neurocritical Care Physician Name Role Phone Neo Briones MD Primary Care Provider [phone] Allergies Active Allergy Reactions Criticality Noted Date Comments Amoxicillin-Pot Clavulanate Hives High 08/12/19 12 augmentin Medications Oljc-Ovny-GEA# [id number]-Vfki-Adalberto-B or [id number] mg Tablet Take 2 Tabs by mouth daily. Active ascorbic acid, vitamin C, (VITAMIN C) 500 mg tablet Take 500 mg by mouth daily. Active cholecalcifero l, Vitamin D3, 50 mcg (2,000 unit) Tablet Take by mouth. Ac tive vitamin E 400 unit capsule Take 400 Units by mouth daily. Active hydroCHLOROthi azide 25 mg tablet 05/18/20 18 Active calcium as carbonate (CALTRATE) 1,500 mg (600 mg elemental) Tablet Take 1 Tablet (600 mg) by mouth daily. 10/15/19 19 Active denosumab (PROLIA) 60 mg/mL Syringe Prolia Active meloxicam (MOBIC) 15 mg tablet meloxicam 15 mg tablet 11/02/19 20 Active aspirin (ECOTRIN EC) 81 mg Tablet, Delayed Release (E.C.) Take 81 mg by mouth. Active ammonium lactate (LAC-HYDRIN) 12 % Lotion ammonium lactate 12 % lotion Active omeprazole 40 mg capsule,delaye d release Take 40 mg by mouth daily. Active clindamycin (CLEOCIN) 150 mg capsule clindamycin HCl 150 mg capsule Active rosuvastatin (CRESTOR) 5 mg tablet Take 5 mg by mouth daily. Active Biotin 10,000 mcg Capsule Take by mouth. Act mark pyridoxine (VITAMIN B6) 100 mg Tablet Take 50 mg by mouth daily. Active benazepriL (LOTENSIN) 40 mg tablet Take 40 mg by mouth daily. Active letrozole (FEMARA) 2.5 mg tablet TAKE 1 TABLET BY MOUTH EVERY DAY 90 Tablet 4 07/24/19 25 Active letrozole (FEMARA) 2.5 mg tablet take 1 tablet by mouth every day 90 Tablet 3 08/09/19 24 025 Discontinued Active Problems Patient Care Coordination No te Formatting of this note migh t be different from the original. Primary Care: Minh Díaz MD Referring Provider: Minh Díaz MD No address on file Other: Problem Noted Date Diagnosed Date History of breast cancer 07/05/2020 Lymphedema of breast 04/20/2019 Aromatase inhibitor use 04/20/2019 Malignant neoplasm of lower- outer quadrant of left breast of female, estrogen receptor positive 07/06/2018 Overview (02/07/2019): Stage: Clinical T1 N0; pT2 N0 Date of diagnosis: 06/15/18 Diagnosis: LEFT 24 mm invasive mammary, 0/6 LN ER(+) MS(+) Her (-) Surgeon: Yvette Surgery: 07/22/18 left lump/SLN Medical Oncologist: Nilo Chemotherapy: none Oncotype RS=15, 4% risk Radiation Oncologist: Lorne Radiation: completed 10/10/18 Hormonal therapy: letrozole starting October 2018 Osteopenia 02/19/2016 Encounters Date Type Department Care Team Description 08/02/2024 External Device Data STL ABSTRACTION Provider, Abstract 07/22/2024 Formerly [facility] Oncology and Hematology [facility] [address] [place] [phone] Marylin Corcoran MD 07/11/2024 External Device Data STL ABSTRACTION Provider, Abstract 05/17/2024 9:30 AM RADIOLOGIC TECHNICIAN Office Visit [facility] Domenico James [address] [place] [address] Opal Suazo PA Lesion of skin of breast (Primary Dx); Malignant neoplasm of lower-outer quadrant of left breast of female, estrogen receptor positive (CMS/HCC); Osteopenia of multiple sites; Chronic bilateral low back pain without sciatica; Encounter for medication monitoring 05/17/2024 9:24 AM RADIOLOGIC TECHNICIAN - 05/17/2024 11:59 PM RADIOLOGIC TECHNICIAN Hospital Encounter [facility] [address] [place] [phone] Opal Suazo PA 1, Injection Discharge Disposition: Home or Self Care 05/03/2024 Orders Only [facility] [address] [place] [phone] Tina Fuentes RN Osteopenia of multiple sites from Last 3 Months Family History Medical History Relation Name Comments Hypertension Brother Alzheimer's Disease Father Coronary Artery Disease Father Hypertension Father Colon Cancer Maternal Aunt Breast Cancer Mother 67 Hypertension Mother 67 Ovarian Cancer Neg Hx Relation Name Status Comments Brother Father Maternal Aunt Mother 67 Social History Tobacco Use Types Packs/Day Years Used Date Smoking Tobacco: Never Smokeless Tobacco: Never Tobacco Cessation:Counseling Given: Not Answered Alcohol Use Standard Drinks/Week Comments No 0 (1 standard drink = 0.6 oz pur e alcohol) Feeling Safe Answer Date Recorded Fear of Current or Ex-Partner Not on file Emotionally Abused Not on file 05/17/2024 Within the last year, have y ou been kicked, hit, slapped, or otherwise physically hurt by your partner or ex-partner? No 05/17/2024 Sexually Abused Not on file 05/17/2024 Feeling Safe Answer Date Recorded Do you worry about feeling s afe and happy with the people in your life? No 05/17/2024 Comments No Sex and Gender Information Value Date Recorded Sex Assigned at Not on file Legal Sex Female 5:44 AM RADIOLOGIC TECHNICIAN Gender Identity Not on file Sexual Orientation Not on file Occupation Industry Job Start Date Job End Date Not on file Not on file Not on file Not on file Last Filed Vital Signs Vital Sign Reading Time Taken Comments Blood Pressure 139/79 05/17/2024 9:29 AM RADIOLOGIC TECHNICIAN Pulse 76 05/17/2024 9:29 AM RADIOLOGIC TECHNICIAN Temperature 36.8 C (98.2 F) 05/17/2024 9:29 AM RADIOLOGIC TECHNICIAN Respiratory Rate 17 10/29/2022 9:08 AM CDT Oxygen Saturation 99% 05/17/2024 9:29 AM RADIOLOGIC TECHNICIAN Inhaled Oxygen Concentration - - Weight 99.3 kg (218 lb 14.4 oz) 05/17/2024 9:29 AM RADIOLOGIC TECHNICIAN Height 153 cm (5' 0.25 ) 05/17/2024 9:29 AM RADIOLOGIC TECHNICIAN Body Mass Index 42.4 05/17/2024 9:29 AM RADIOLOGIC TECHNICIAN Plan of Treatment Upcoming Encounters Date Type Department Care Team (Late st Contact Info) Description 08/22/2024 10:[address] [facility] [address] [place] [address] Liliane Cruz, MAGGIE [address] [place] [address] 08/22/2024 11:45 AM CDT Office Visit [facility] Breast Surgery Domenico James [address] [place] [address] Liliane Cruz, MAGGIE [address] [place] [address] 09/27/2024 10:30 AM CDT Office Visit [facility] BROOM WORKER [address] [address] Ayana Dillon NP [address] [place] [address] 11/20/2024 10:00 AM CDT Office Visit [facility] Domenico James [address] [place] [address] Marylin Corcoran MD [address] [place] [address] 11/20/2024 10:30 AM CDT Appointment [place] [address] [place] [address] Marylin Corcoran MD [address] [place] [address] 1, Injection Health Maintenance Due Date Last Done Comments DTAP/TDAP/TD VACCINES (1 - Tdap) 01/19/1971 COLORECTAL SCREENING 01/19/1997 FIT-DNA Q 3 years 01/19/1997 Flex Sig/CT Colonography Q 5 years 01/19/1997 PNEUMOCOCCAL VACCINE 65+ YEA RS (1 of 1 - PCV) 01/19/2002 ZOSTER VACCINE (1 of 2) 01/19/2002 RSV VACCINE (60+ or ) (1 - Risk 60-74 years 1-dose series) 2012 Colorectal Cancer Screening 02/18/2017 FIT/FOBT Q 1 year 02/18/2017 02/19/2016, , 01/31/2014, Additional history exists INFLUENZA VACCINE (#1) 2024 [place] Preventative Visit/Annual Wellness Visit 06/14/2024 09/27/2023, 07/09/2022, 07/08/2021, Additional history exists BREAST CANCER SCREENING 07/29/2024 07/29/19 24, 07/28/2022, 07/15/2021, Additional history exists OSTEOPOROSIS SCREENING 09/10/2024 , 09/06/2020, 08/31/2018, Additional history exists Procedures Procedure Name Priority Date/Time Associated Diagnosis Comments BASIC METABOLIC PANEL Routine 05/04/2024 10:14 AM RADIOLOGIC TECHNICIAN Osteopenia of multiple sites MAMMO 3D JACEK DIAGNOSTIC BILAT W OR WO CAD Routine 07/29/2023 10:40 AM RADIOLOGIC TECHNICIAN Malignant neoplasm of lower-outer quadrant of left breast of female, estrogen receptor positive (CMS/HCC) XR DEXA BONE DENSITY AXIAL 1 OR MORE SITES Routine 09/10/2022 10:32 AM CDT Osteopenia of multiple sites POC OCCULT BLOOD, IMMUNO, QUAL, STOOL Routine 02/19/2016 12:29 PM CDT Screening for malignant neoplasm of the rectum from Last 3 Months or Most Recently Relevant to Health Maintenance Results * (ABNORMAL) BASIC METABOLIC PANEL (05/04/2024 10:14 AM RADIOLOGIC TECHNICIAN) GLUCOSE 83 65 - 99 mg/dL [facility] Comment: Fasting reference interval BUN 22 7 - 25 mg/dL [facility] CREATININE 1.11(H) 0.60 - 1.00 mg/dL [facility] GFR 53(L) > OR = 60 mL/min/1.7 3m2 [facility] BUN/CREAT RATIO 20 6 - 22 (calc) [facility] SODIUM 143 135 - 146 mmol/L [facility] POTASSIUM 4.3 3.5 - 5.3 mmol/L [facility] CHLORIDE 104 98 - 110 mmol/L [facility] CO2 31 20 - 32 mmol/L [facility] CALCIUM 9.7 8.6 - 10.4 mg/dL [facility] Comment: Test Performed at: [facility] [address] [place] [address] Grace Ramirez MD Blood 05/04/2024 10:1 4 AM RADIOLOGIC TECHNICIAN 05/04/2024 10:14 AM RADIOLOGIC TECHNICIAN us Marylin Corcoran MD CHEMISTRY ORDERABLES Final R esult [facility] [phone] [facility] [address] [place] [address] * MAMMO DIAG BILAT 3D JACEK W OR WO CAD (07/29/2023 10:40 AM RADIOLOGIC TECHNICIAN) Anatomical Region Laterality Modality Breast Bilateral Mammography 07/29/2023 10:4 0 AM RADIOLOGIC TECHNICIAN Impressions 07/29/2023 10:53 AM RADIOLOGIC TECHNICIAN IMPRESSION: No mammographic evidence of malignancy in the bilateral breasts. Routine mammography is recommended in 1 year. OVERALL FINAL ASSESSMENT: BI-RADS CATEGORY 2 - Benign findings DICTATION LOCATION: [facility] 07/29/2023 10:53 AM RADIOLOGIC TECHNICIAN EXAMINATION: BILATERAL DIAGNOSTIC DIGITAL MAMMOGRAPHY WITH TOMOSYNTHESIS AND CAD DATE: 07/29/2023 10:40 AM HISTORY: 73-year-old female with a personal history of left breast cancer treated with left breast conservation therapy in 2019 presents for follow-up bilateral diagnostic mammography. No current symptoms. COMPARISON: Multiple prior mammograms with dates ranging from 07/28/2022 to 12/30/2011. TECHNIQUE: A bilateral diagnostic mammogram was performed. Low-dose full-field digital breast tomosynthesis examination was performed with 2D and 3D acquisitions. Examination is read in conjunction with computer aided detection. BREAST COMPOSITION: There are scattered areas of fibroglandular density. FINDINGS: There are stable mammographic findings consistent with prior left breast conservation therapy. There is a biopsy clip in the right breast. There are no suspicious masses, suspicious calcifications, or other suspicious findings in either breast. There has been no suspicious interval change. Computer aided detection was used in the interpretation of this examination. Procedure Note Giovanni Sawant MD - 07/29/2023 EXAMINATION: BILATERAL DIAGNOSTIC DIGITAL MAMMOGRAPHY WITH TOMOSYNTHESIS AND CAD DATE: 07/29/2023 10:40 AM HISTORY: 73-year-old female with a personal history of left breast cancer treated with left breast conservation therapy in 2019 presents for follow-up bilateral diagnostic mammography. No current symptoms. COMPARISON: Multiple prior mammograms with dates ranging from 07/28/2022 to 12/30/2011. TECHNIQUE: A bilateral diagnostic mammogram was performed. Low-dose full-field digital breast tomosynthesis examination was performed with 2D and 3D acquisitions. Examination is read in conjunction with computer aided detection. BREAST COMPOSITION: There are scattered areas of fibroglandular density. FINDINGS: There are stable mammographic findings consistent with prior left breast conservation therapy. There is a biopsy clip in the right breast. There are no suspicious masses, suspicious calcifications, or other suspicious findings in either breast. There has been no suspicious interval change. Computer aided detection was used in the interpretation of this examination. IMPRESSION: No mammographic evidence of malignancy in the bilateral breasts. Routine mammography is recommended in 1 year. OVERALL FINAL ASSESSMENT: BI-RADS CATEGORY 2 - Benign findings DICTATION LOCATION: [facility] us Tiffany Crawford MD MAMMO ORDERABLES Final Result * XR DEXA BONE DENSITY AXIAL 1 OR MORE SITES (09/10/2022 10:32 AM CDT) Anatomical Region Laterality Modality Digital Radiogra phy 09/10/2022 10:3 3 AM CDT Impressions 09/10/2022 10:37 AM CDT IMPRESSION: This is a summary page. Please refer to the complete detailed report found in the Imaging Section of the [facility] EMR. Osteopenia. Lumbar Spine: T-Score: -0.9 Left Femoral Neck: T-Score: -2.2 Left Total Femur: T-Score: -1.3 Right Femoral Neck: T-Score: -1.8 Right Total Femur: T-Score: -1.1 Left Forearm: T-Score: -0.7 Statistical change: No significant change in BMD since the prior exam. FRAX FRACTURE RISK ASSESSMENT: (Only valid Between 40-89 Years Of Age) Risk factors: Secondary osteoporosis. 10 Year Probability Of Fracture Major Osteoporotic: 11.9 % Hip: 2.6 % Comparison population: [place], Race: White A major osteoporotic fracture is defined as a fracture of the spine, forearm, hip or shoulder. Definitions: Normal: T-score above -1.0 Osteopenia T-score less than -1.0 and above -2.5 Osteoporosis: T-score <= -2.5 Follow-up Recommendations: Patients without high risk factors for osteoporosis T-score -1.0 to -1.5 - Consider repeat BMD in 5-10 years T-score -1.5 to - 2.0 - Consider repeat BMD in 3-5 years T-score -2.0 to - 2.5 - Consider repeat BMD every 2 years Patients on treatment for osteoporosis 1-2 years after initiation of treatment and every 2 years thereafter D[address] Dr[address] Chino Robertson MD DICTATION LOCATION: 1 Narrative 09/10/2022 10:37 AM CDT EXAMINATION: BONE DENSITY STUDY (DXA) DATE: 09/10/2022 10:32 AM HISTORY: 72 years Female. Postmenopausal. PROCEDURE: Planar images of the lumbar spine, hip(s) and forearm(s) using a LUNAR DEXA scanner for bone mineral density determination (BMD). Prior bone density: 09/06/2020 FINDINGS: Lumbar Spine (L1-L2): T-Score: -0.9 1.052 g/sq cm Prior: 0.958 g/sq cm Left Femoral Neck: T-Score: -2.2 0.728 g/sq cm Prior: 0.747 g/sq cm Left Total Femur: T-Score: -1.3 Right Femoral Neck: T-Score: -1.8 0.790 g/sq cm Prior: 0.750 g/sq cm Right Total Femur: T-Score: -1.1 Left 33% Radius: T-Score: -0.7 0.814 g/sq cm INCIDENTAL FINDINGS: L3-L4 excluded bcause of statistical variation.. Procedure Note Chino Robertson MD - 09/10/2022 EXAMINATION: BONE DENSITY STUDY (DXA) DATE: 09/10/2022 10:32 AM HISTORY: 72 years Female. Postmenopausal. PROCEDURE: Planar images of the lumbar spine, hip(s) and forearm(s) using a LUNAR DEXA scanner for bone mineral density determination (BMD). Prior bone density: 09/06/2020 FINDINGS: Lumbar Spine (L1-L2): T-Score: -0.9 1.052 g/sq cm Prior: 0.958 g/sq cm Left Femoral Neck: T-Score: -2.2 0.728 g/sq cm Prior: 0.747 g/sq cm Left Total Femur: T-Score: -1.3 Right Femoral Neck: T-Score: -1.8 0.790 g/sq cm Prior: 0.750 g/sq cm Right Total Femur: T-Score: -1.1 Left 33% Radius: T-Score: -0.7 0.814 g/sq cm INCIDENTAL FINDINGS: L3-L4 excluded bcause of statistical variation.. IMPRESSION: This is a summary page. Please refer to the complete detailed report found in the Imaging Section of the [facility] EMR. Osteopenia. Lumbar Spine: T-Score: -0.9 Left Femoral Neck: T-Score: -2.2 Left Total Femur: T-Score: -1.3 Right Femoral Neck: T-Score: -1.8 Right Total Femur: T-Score: -1.1 Left Forearm: T-Score: -0.7 Statistical change: No significant change in BMD since the prior exam. FRAX FRACTURE RISK ASSESSMENT: (Only valid Between 40-89 Years Of Age) Risk factors: Secondary osteoporosis. 10 Year Probability Of Fracture Major Osteoporotic: 11.9 % Hip: 2.6 % Comparison population: [place], Race: White A major osteoporotic fracture is defined as a fracture of the spine, forearm, hip or shoulder. Definitions: Normal: T-score above -1.0 Osteopenia T-score less than -1.0 and above -2.5 Osteoporosis: T-score <= -2.5 Follow-up Recommendations: Patients without high risk factors for osteoporosis T-score -1.0 to -1.5 - Consider repeat BMD in 5-10 years T-score -1.5 to - 2.0 - Consider repeat BMD in 3-5 years T-score -2.0 to - 2.5 - Consider repeat BMD every 2 years Patients on treatment for osteoporosis 1-2 years after initiation of treatment and every 2 years thereafter [address] Chino Robertson MD DICTATION LOCATION: 1 us Marylin Corcoran MD DIAGNOSTIC IMAGING ORDERABLE S Final Result * POC OCCULT BLOOD, IMMUNO, QUAL, STOOL (02/19/2016 12:29 PM CDT) OCCULT BLOOD, IMMUNOASSAY STOOL1 POC negative [facility] OCCULT BLOOD, IMMUNOASSAY STOOL2 POC [facility] OCCULT BLOOD, IMMUNOASSAY STOOL3 POC [facility] Stool specimen (specimen) STOOL SPECIMEN / Unknown 02/19/2016 12:29 PM CDT us Ayana Dillon NP POINT OF CARE TESTING Final Result [facility] from Last 3 Months or Most Recently Relevant to Health Maintenance Insurance [employer] PPO MCR Care Teams Neurocritical Care Physician Relationship Specialty Start Date End Date Neo Briones MD [address] [facility] [[email or web address] [address] [place] [phone] PCP - General Family Practice 07/13/18
--- OUTSIDE RECORDS SUMMARY | 2024-08-03 16:32 | XMS_ITS | Patient Health Summary ---
Author Organization [facility] Address [address] [place] [address] Care Team Providers Care Extrusion Die Corrector Name Role Phone Neo Briones MD Primary Care Provider [phone] Note from [facility],non-owned Affiliates and Associated Physician Practices is amultiple site organization consisting of ambulatory clinics and hospital sitesin [place], [place], [place] and [place]. This disclosure is being madepursuant to the Care Everywhere program and may not contain all information available regarding this patient. Last updated 18.[facility] Allergies * Amoxicillin-Pot Clavulanate(Urticaria) -Medium Criticality Medications * Be aware that medications may not be up to date on this document. Always verify current medications with the patient. * ascorbic acid (VITAMIN C) 500 MG tablet Take 500 mg by mouth once daily * calcium carbonate (CALCIUM 600) 600 MG tablet(Started 10/14/2018) Take 600 mg by mouth once daily * Vitamin D3 (CHOLECALCIFEROL) 50 MCG (1999 UT) capsule Take 2,000 Units by mouth once daily * vitamin E (TOCOPHERYL) 400 UNIT capsule Take 400 Units by mouth once daily * benazepril (LOTENSIN) 20 MG tablet benazepril 20 mg tablet * clindamycin (CLEOCIN) 300 MG capsule(Started 04/12/2019) TAKE TWO CAPSULES ONE HOUR PRIOR TO DENTAL PROCEDURE * denosumab (PROLIA) 60 MG/ML SC injection Prolia every 6 months * hydroCHLOROthiazide (HYDRODIURIL) 25 MG tablet(Started 05/18/2018) hydrochlorothiazide 25 mg tablet * letrozole (FEMARA) 2.5 MG tablet(Started 10/12/2018) letrozole 2.5 mg tablet * LORazepam (ATIVAN) 0.5 MG tablet(Started 06/29/2018) lorazepam 0.5 mg tablet * Misc Natural Products (GLUCOSAMINE CHONDROITIN ADV) TABS Take 2 tablets by mouth once daily * aspirin EC (ECOTRIN) 81 MG tablet Take 81 mg by mouth once daily Active Problems Problem Noted Date Diagnosed Date [...] Mass Index 46.67 11/21/2019 2:13 PM CDT Care Teams Extrusion Die Corrector Relationship Specialty Start Date End Date Neo Briones MD [address] [place] [address] PCP - General 01/13/18
--- OUTSIDE RECORDS SUMMARY | 2024-08-03 16:32 | XMS_ITS | Referral Summary ---
Author Organization [facility] Address [address] [place] [address] Care Team Providers Care Kitchen Help Handyman Name Role Phone Neo Briones MD Primary [...] (12/05/2018): Added automatically from request for surgery [id number] Instability of shoulder joint 10/23/2016 Pain in shoulder 07/31/2016 Social History Tobacco Use Types Packs/Day Years [...] on file Legal Sex Female 3:34 AM COLLAR STITCHER Gender Identity Not on file Sexual Orientation [...] on file Medical Devices Implanted Type Area Financial Reporting Advisor Device Identifier Shelf Expiration Date Model / Serial / Lot [employer] [id number] Comprehensive Taper Adapter 25mm Mini Baseplate Glenoid Reverse - [id number] Implanted:Qty: 1 on 01/05/2019 by Abe Banuelos MD at [facility] Right: Shoulder [employer] [id number] 11/30/2028 [id number] / / [id number] [employer] [id number] Comprehensive 6.5mm 25mm Central Hexagonal 3.5mm Screw Bone - [id number] Implanted:Qty: 1 on 01/05/2019 by Abe Banuelos MD at [facility] Right: Shoulder [employer] [id number] 12/02/2028 [id number] / / [id number] [employer] [id number] Comprehensive 4.75mm 20mm Fix Angle Lock Hexagonal 3.5mm Screw - [id number] Implanted:Qty: 1 on 01/05/2019 by Abe Banuelos MD at [facility] Right: Shoulder [employer] [id number] 10/28/2028 [id number] / / [id number] [employer] [id number] Comprehensive 4.75mm 30mm Fix Angle Lock Hexagonal 3.5mm Screw - [id number] Implanted:Qty: 1 on 01/05/2019 by Abe Banuelos MD at [facility] Right: Shoulder [employer] [id number] 11/28/2028 [id number] / / [id number] [employer] [id number] Comprehensive Versa-Dial 36mm Glenosphere Color Coded Shoulder +3 - [id number] Implanted:Qty: 1 on 01/05/2019 by Abe Banuelos MD at [facility] Right: Shoulder [employer] [id number] 12/01/2028 [id number] / / [id number] [employer] [id number] 36mm Reverse Humerus 7d +0mm Offset Standard Liner Shoulder - [id number] Implanted:Qty: 1 on 01/05/2019 by Abe Banuelos MD at [facility] Right: Shoulder [employer] [id number] 12/11/2026 [id number] / / [id number] [employer] [id number] 10mm 130mm Shoulder Stem Humeral Trabecular Metal Tivanium - [id number] Implanted:Qty: 1 on 01/05/2019 by Abe Banuelos MD at [facility] Right: Shoulder [employer] [id number] 09/11/2028 [id number] / / [id number] Explanted Type Area Financial Reporting Advisor Device Identifier Shelf Expiration Date Model / Serial / Lot [employer] [id number] Steinmann 3/32in 9in 2 Trocar Pin Fixation Nonsterile - [id number] Explanted:Qty: 1 on 01/05/2019 by Abe Banuelos MD at [facility] Right: Shoulder [employer] [id number] S / / Insurance MEDICARE SOLUTIONS MEDICARE SOLUTIONS Advance Directives For more information, please contact: [phone] * Full Code (Latest Code Status on File) Date Activated Date Inactivated Comments 01/05/2019 6:26 PM 01/06/2019 6:32 PM * Full Code Date Activated Date Inactivated Comments 01/04/2019 9:18 AM 01/04/2019 3:45 PM Care Teams Kitchen Help Handyman Relationship Specialty Start Date End Date Neo Briones MD [address] [place] [address] PCP - General 08/12/16
--- OUTSIDE RECORDS SUMMARY | 2024-08-03 16:32 | XMS_ITS | Clinical Summary ---
Author Organization [facility] Address Formerly [facility], [facility] [place] [address] Care Team Providers Care Hall Clerk Name Role Phone Unavailable Primary Care Provider Unavailabl e Social History Tobacco Use Types Packs/Day Years Used Date Smoking Tobacco: Never Assessed Comments Unknown Sex and Gender Information Value Date Recorded Sex Assigned at Not on file Legal Sex Female 5:24 PM CDT Gender Identity Not on file Sexual Orientation Not on file Plan of Treatment Health Maintenance Due Date Last Done Comments Colorectal Cancer Screening Colonoscopy (10 Years) 1950 Hepatitis C 01/19/1970 DTaP, Tdap and Td Vaccines ( 1 - Tdap) 01/19/1971 Mammogram Screening 1992 Zoster Vaccines (1 of 2) 01/19/2002 Dexa Scan (General) 01/19/2017 Pneumococcal Vaccine: 65+ Ye ars (1 of 1 - PCV) 01/19/2017 COVID-19 Vaccine (2023-2 5 season) 2024 Influenza Adult (#1) 2024 RSV Immunization or 60+ Years (1 - 1-dose 75+ series) 01/19/2027 Meningococcal B Vaccine Aged Out No l onger eligible based on patient's age to complete this topic Meningococcal Vaccine Aged Out No orin silvina eligible based on patient's age to complete this topic RSV Immunizations Under 20 Months Aged Out No longer eligible based on patient's age to complete this topic
--- OUTSIDE RECORDS SUMMARY | 2024-08-03 16:32 | XMS_ITS | Encounter Summary ---
Author Organization [facility] Address 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 Gender Identity Not on file Sexual Orientation Not on file Occupation Industry Job Start Date Job End Date Not on file Not on file Not on file Not on file documented as of this encounter Plan of Treatment Upcoming Encounters Date Type Department Care Team (Late st Contact Info) Description 08/22/2024 10:45 AM CDT Appointment [facility] [address] [place] [address] Liliane Cruz, CUSTODIAL SERVICES MANAGER [address] [place] [address] 08/22/2024 11:45 AM CDT Office Visit [facility] Breast Surgery Domenico James [address] [facility] [address] [place] [address] Liliane Cruz, CUSTODIAL SERVICES MANAGER [address] [place] [address] 09/27/2024 10:30 AM CDT Office Visit [facility] AD OPERATIONS ASSOCIATE - [address] [address] Ayana Dillon NP [address] [place] [address] 11/20/2024 10:00 AM CDT Office Visit [facility] Oncology and Hematology Domenico James [address] [facility] [address] [place] [address] Marylin Corcoran MD [address] [place] [address] 11/20/2024 10:30 AM CDT Appointment [facility] [address] [facility] [address] [place] [address] Marylin Corcoran MD [address] [place] [address] , Injection documented as of this encounter Visit Diagnoses Not on filedocumented in this encounter Care Teams Marketing Performance Analyst Relationship Specialty Start Date End Date Neo Briones MD [address] [place] [address] PCP - General Family Practice 07/13/18 documented as of this encounter
--- OUTSIDE RECORDS SUMMARY | 2024-08-03 16:32 | XMS_ITS | Encounter Summary ---
Author Organization [facility] Address [address] [place] [address] Care Team Providers Care Evp Strategy Name Role Phone Neo Briones MD Primary Care Provider [phone] Encounter Details Date Type Department Care Team (Late Contact Info) Description 06/22/2018 Chart Note [facility] Oncology Patient Navigation [address] [place] [address] Luh Mukherjee, RN Social History Tobacco Use Types Packs/Day Years Used Date Smoking Tobacco: Never Smokeless Tobacco: Never Alcohol Use Standard Drinks/Week Comments No 0 (1 standard drink = 0.6 oz pur e alcohol) Comments No Sex and Gender Information Value Date Recorded Sex Assigned at Not on file 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 Gender Identity Not on file Sexual Orientation Not on file Occupation Industry Job Start Date Job End Date Not on file Not on file Not on file Not on file documented as of this encounter Plan of Treatment Upcoming Encounters Date Type Department Care Team ([facility] Contact Info) Description 08/22/2024 10:45 AM CDT Appointment [facility] [address] [place] [address] Liliane Cruz, MAGGIE [address] [place] [address] 08/22/2024 11:45 AM CDT Office Visit [facility] Breast Surgery Sammie [address] [place] [address] Liliane Cruz, OIL RIGGER [address] [facility] [address] [place] [address] 09/27/2024 10:30 AM CDT Office Visit [facility] ARCHIVES TECHNICIAN [address] [facility] [address] [address] Ayana Dillon NP [address] [facility] [address] [place] [address] 11/20/2024 10:00 AM CDT Office Visit [facility] Oncology and Hematology [facility] [address] [facility] [address] [place] [address] Marylin Corcoran MD [address] [facility] [address] [place], [place] [address] 11/20/2024 10:30 AM CDT Appointment [facility] [address] [facility] [address] [place] [address] Marylin Corcoran MD [address] [facility] [address] [place] [address] 1, Injection documented as of this encounter Visit Diagnoses Not on filedocumented in this encounter Care Teams Evp Strategy Relationship Specialty Start Date End Date Neo Briones MD [address] [place] [address] PCP - General Family Practice 07/13/18 documented as of this encounter
[2024-08-03 17:19] LABS: Influenza A QL RT-PCR Negative (Negative); Influenza B QL RT-PCR Negative (Negative); RSV RNA, RT-PCR Negative (Negative); SARS-CoV-2 RNA PCR Negative (Negative)
== END 2024-08-03 16:30 | disposition home or self-care (01) ==
LOC: ANHLAB 16:30
PROVIDERS: PCP Family Medicine; Visit Provider Physician Assistant
DX: R05.9 Cough, unspecified (principal); J02.9 Acute pharyngitis, unspecified; R50.9 Fever, unspecified
CPT/HCPCS: 87637

== ENCOUNTER 2024-08-16 09:24 | Outpatient (CLI) | payer MEDICARE, SELFPAY ==
--- OUTSIDE RECORDS SUMMARY | 2024-08-16 10:07 | XMS_ITS | Patient Health Summary ---
Author Organization [facility] Address [address] [place] [address] Care Team Providers Care Telecommunications Project Manager Name Role Phone Neo Briones MD Primary Care Provider [phone] Note from [facility] [place],non-owned Affiliates and Associated Physician Practices is amultiple site organization consisting of ambulatory clinics and hospital sitesin [place], [place] and [place]. This disclosure is being madepursuant to the Care Everywhere program and may not contain all information available regarding this patient. Last updated 18.[facility] Allergies * Amoxicillin-Pot Clavulanate(Urticaria) -Medium Criticality Medications [...] 46.67 11/21/2019 2:13 PM CDT Care Teams Telecommunications Project Manager Relationship Specialty Start Date End Date Neo Briones MD [address] [place] [address] PCP - General 01/13/18
--- OUTSIDE RECORDS SUMMARY | 2024-08-16 10:07 | XMS_ITS | Encounter Summary ---
Author Organization [facility] Address [address] [place] [address] Care Team Providers Care Road Boss Name Role Phone Neo Briones MD Primary Care Provider [phone] Encounter Details Date Type Department Care Team (Late Contact Info) Description 06/22/2018 Chart Note [facility] Oncology Patient Navigation [address] [place] [address] Luh Mukherjee, VIVIAN Social History Tobacco Use Types Packs/Day Years Used Date Smoking Tobacco: Never Smokeless Tobacco: Never Alcohol Use Standard Drinks/Week Comments No 0 (1 standard drink = 0.6 oz pur e alcohol) Comments No Sex and Gender Information Value Date Recorded Sex Assigned at Not on file 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 Gender Identity Not on file Sexual Orientation Not on file Occupation Industry Job Start Date Job End Date Not on file Not on file Not on file Not on file documented as of this encounter Plan of Treatment Upcoming Encounters Date Type Department Care Team ([facility] Contact Info) Description 08/22/2024 10:45 AM CDT Appointment [facility] [address] [place] [address] Liliane Cruz, MAGGIE [address] [place] [address] 08/22/2024 11:45 AM CDT Office Visit [facility] Breast Surgery Sammie [address] [place] [address] Liliane Cruz, DIFFERENTIAL SPECIALIST [address] [facility] [address] [place] [address] 09/27/2024 10:30 AM CDT Office Visit [facility] HELMET HAT BRIM CUTTER [address] [facility] [address] [address] Ayana Dillon NP [address] [facility] [address] [place] [address] 11/20/2024 10:00 AM CDT Office Visit [facility] Oncology and Hematology [facility] [address] [facility] [address] [place] [address] Marylin Corcoran MD [address] [facility] [address] [place], [place] [address] 11/20/2024 10:[address] [facility] [address] [facility] [address] [place] [address] Marylin Corcoran MD [address] [facility] [address] [place] [address] 1, Injection documented as of this encounter Visit Diagnoses Not on filedocumented in this encounter Care Teams Road Boss Relationship Specialty Start Date End Date Neo Briones MD [address] [facility] [address] [place] [address] PCP - General Family Practice 07/13/18 documented as of this encounter
--- OUTSIDE RECORDS SUMMARY | 2024-08-16 10:07 | XMS_ITS | Clinical Summary ---
Author Organization [facility] Address Pending [facility] to [facility] [place] [address] Care Team Providers Care Dip Stand Loader Name Role Phone Unavailable Primary Care Provider [...]
--- OUTSIDE RECORDS SUMMARY | 2024-08-16 10:07 | XMS_ITS | Referral Summary ---
Author Organization [facility] Address [address] [place] [address] Care Team Providers Care Staff Nuclear Weapons Officer Name Role Phone Neo Briones MD Primary Care Provider [phone] Source Comments [facility],non-owned Affiliates and Associated Physician Practices is amultiple site organization consisting of ambulatory clinics and hospital sitesin [place] and [place]. This disclosure is being madepursuant to the Care Everywhere program and may not contain all information available regarding this patient. Last updated 18.[facility] Allergies Active Allergy Reactions Criticality Noted Date [...] of Treatment Not on file Care Teams Staff Nuclear Weapons Officer Relationship Specialty Start Date End Date Neo Briones MD [address] [place] [address] PCP - General 01/13/18
--- OUTSIDE RECORDS SUMMARY | 2024-08-16 10:07 | XMS_ITS | Clinical Summary ---
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 Pain in shoulder 07/31/2016 Surgical History Surgery Date Site/Laterality Comments BREAST LUMPECTOMY SHOULDER ARTHROSCOPY COLONOSCOPY CENTRAL LINE PLACEMENT > 5 YEARS 01/04/2019 N/A CATARACT EXTRACTION Bilateral SHOULDER SURGERY Right right reverse total shoulder BUNIONECTOMY Bilateral CARPAL TUNNEL RELEASE Bilateral CHOLECYSTECTOMY Medical History Medical History Date Comments Cancer (HCC) Hypertension History of radiation therapy 10/10/2018 [...] on file 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 Gender Identity Not on file Sexual Orientation [...] on file Medical Devices Implanted Type Area Commercial Green Building Architect Device Identifier Shelf Expiration Date Model / Serial / Lot [employer] [id number] Comprehensive Taper Adapter 25mm Mini Baseplate Glenoid Reverse - [id number] Implanted:Qty: 1 on 01/05/2019 by Abe Banuelos MD at [facility] Right: Shoulder [employer] [id number] 11/30/2028 [id number] / / [id number] [employer] [id number] Comprehensive 6.5mm 25mm Central Hexagonal 3.5mm Screw Bone - [id number] Implanted:Qty: 1 on 01/05/2019 by Abe Banuelos MD at [facility] Right: Shoulder [employer] [id number] 12/02/2028 [id number] / / [id number] [employer] 005701 Comprehensive 4.75mm 20mm Fix Angle Lock Hexagonal 3.5mm Screw - [id number] Implanted:Qty: 1 on 01/05/2019 by Abe Banuelos MD at [facility] Right: Shoulder [employer] [id number] 10/28/2028 [id number] / / [id number] [employer] 116929 Comprehensive 4.75mm 30mm Fix Angle Lock Hexagonal 3.5mm Screw - [id number] Implanted:Qty: 1 on 01/05/2019 by Abe Banuelos MD at [facility] Right: Shoulder [employer] [id number] 11/28/2028 [id number] / / [id number] [employer] [id number] Comprehensive Versa-Dial 36mm Glenosphere Color Coded Shoulder +3 - [id number] Implanted:Qty: 1 on 01/05/2019 by Abe Banuelos MD at [facility] Right: Shoulder [employer] [id number] 12/01/2028 [id number] / / [id number] [employer] [id number] 36mm Reverse Humerus 7d +0mm Offset Standard Liner Shoulder - [id number] Implanted:Qty: 1 on 01/05/2019 by Abe Banuelos MD at [facility] Right: Shoulder [employer] [id number] 12/11/2026 [id number] / / [id number] [employer] [id number] 10mm 130mm Shoulder Stem Humeral Trabecular Metal Tivanium - [id number] Implanted:Qty: 1 on 01/05/2019 by Abe Banuelos MD at [facility] Right: Shoulder [employer] [id number] 09/11/2028 [id number] / / [id number] Explanted Type Area Commercial Green Building Architect Device Identifier Shelf Expiration Date Model / Serial / Lot [employer] [id number] Blade 3/32in 9in 2 Trocar Pin Fixation Nonsterile - [id number] Explanted:Qty: 1 on 01/05/2019 by Abe Banuelos MD at [facility] Right: Shoulder [employer] [id number] S / / Insurance MEDICARE SOLUTIONS MEDICARE SOLUTIONS Advance Directives For more information, please contact: [phone] * Full Code (Latest Code Status on File) Date Activated Date Inactivated Comments 01/05/2019 6:26 PM 01/06/2019 6:32 PM * Full Code Date Activated Date Inactivated Comments 01/04/2019 9:18 AM 01/04/2019 3:45 PM Care Teams Can Tender Relationship Specialty Start Date End Date Neo Briones MD [address] [facility] [address] [place] [id number] PCP - General 08/12/16
--- OUTSIDE RECORDS SUMMARY | 2024-08-16 10:07 | XMS_ITS | Data Portability ---
Author Organization [place] [facility], Main Office Address [address] [place] [address] Assessment Encounter Date Assessment Date Assessment LastModified by Organization Details LastModified Time 11/16/2023 11/16/2023 This note is dictated and transcribed by [employer]. Stacker And Sorter Operator variances may occur. Despite proofreading, typographical errors may occur. Occasional wrong-word or 'xlwpc-x-dpiu' substitutions may have occurred due to the inherent limitations of voice recording. Read the chart carefully and recognize, using context, where substitutions have occurred. Not available 11/16/2023 09:36:39 02/15/2024 02/15/2024 This note is dictated and transcribed by [employer]. [employer]acker [employer] Operator variances may occur. Despite proofreading, typographical errors may occur. Occasional wrong-word or 'afxpw-d-pxgu' substitutions may have occurred due to the inherent limitations of voice recording. Read the chart carefully and recognize, using context, where substitutions have occurred. Not available 02/15/2024 10:37:49 Plan of Treatment Reminders Order Date Submit Date Provider Last Modified By Organization Details Last Modified Time Details Appointments Establish ed Patient 15 2024 03:30P Maynor Cavazos DPM Not available Not available Not available Lab None recorded. Referral None recorded. Procedures None recorded. Surgeries None recorded. Imaging None recorded. Medication Orders ammonium lactate 12 % lotion 2023 024 [facility] #[id number], [address], [place], [address], 02/15/2024 10:37:48 Patient TargetsNo targets recorded. Patient InstructionsNo instructions recorded. Reason for Referral None Reported. Problems Name Problem SNOMED Code Status Onset Date Resolution Date Notes Provider Name and Address Organization Details Recorded Time Dry skin 85586478 Active 2020 Not Available [facility] 3 02:52:08 Overexerti on and strenuous movements Active Not Available [facility] 3 02:52:08 Shoulder joint pain 186239016 Active Not Available [facility] 3 02:52:08 Current tear of medial cartilage AND/OR meniscus of knee Active Not Available [facility] 3 02:52:08 Knee pain Active Not Available [facility] 3 02:52:08 Hypertensi ve disorder 12941164 Active Not Available [facility] 3 02:52:08 Porokerato sis 219816189 Active 2020 Not Available [facility] 3 02:52:09 Ingrowing toenail 137135608 Active 2020 Not Available [facility] 3 02:52:09 Lymphedema of lower extremity 544360341 Active 2020 Not Available [facility] 3 02:52:09 Onychomyco sis 378620284 Active 2018 Not Available [facility] 3 02:52:09 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 Active 2018 Not Available [facility] 3 02:52:09 Dystrophia unguium 24153156 Active 2022 Asaf Cavazos DPM [address], [place], [address] , [facility] 3 16:48:53 Talipes planus 27058512 Active 2022 Asaf Cavazos DPM [address], [place], [address] , [employer] 3 16:50:14 Pain in right foot 0312113610799 07 Active 2022 Asaf Cavazos DPM [address], [place], [address] , [employer] 3 13:49:18 Pain in toe 116560274 Active 2023 Asaf Cavazos DPM [address], [place], [address] , [employer] 4 09:29:42 Foot callus 571407068 Active 2023 Asaf Cavazos DPM [address], [place], [address] , [employer] 4 09:29:55 Bunion 578067782 Active 2023 Asaf Cavazos DPM [address], [place], [address] , [employer] 4 09:30:02 Pain in toe 759594522 Active 2023 Asaf Cavazos DPM [address], [place], [address] , [facility] 4 13:46:28 Problem Notes None recorded. Procedures Surgical History Date Name Laterality Status Provider Name and Address Organization Details Recorded Time 4 Nail Debridement completed Asaf Cavazos DPM [address], [place], [address], [employer] 05/16/2024 13:50:51 4 Nail Debridement completed Asaf Cavazos DPM [address], [place], [address], [employer] 02/15/2024 10:39:06 4 Callus Debridement, One completed Asaf Cavazos DPM [address], [place], [address], [employer] 02/15/2024 10:39:10 4 Nail Debridement completed [address], [place], [address], [employer] 11/16/2023 09:36:31 4 Nail Debridement completed JENNIF[address], [place], [address], [employer] [facility] 08/19/2023 09:28:50 4 Callus Debridement 2-4 completed Asaf Cavazos DPM [address], [place], [address], [facility] [employer] [facility] 08/19/2023 09:28:57 3 Nail Debridement completed Asaf Cavazos DPM [address], [place], [address], [employer] [facility] 05/20/2023 09:18:26 3 Nail Debridement completed Asaf Cavazos DPM [address], [place], [address], [employer] [facility] 02/18/2023 13:57:36 3 Callus Debridement, One completed Asaf Cavazos DPM [address], [place], [address], [employer] [facility] 02/18/2023 13:57:24 3 Nail Debridement completed Asaf Cavazos DPM [address], [place], [address], [employer] 09/08/2022 16:48:45 Imaging Results None recorded. Procedure Notes None recorded. Medical Equipment None Reported. Allergies Allergen ID Allergen Name Allergen Category Reaction Reaction Severity Criticality Documentation Date Start Date Code Code System Note Provider Name and Address Organization Details Recorded Time 4892 Augmentin medicatio n Not available Not available Not available 08/12/2022 04371 2 RxNorm Not Available [facility] 3 03:04:12 Medications Name Sig Start Date Stop Date Status Note LastModified by Organization Details LastModified Time clindamycin HCl 300 mg capsule TAKE 2 CAPSULES BY MOUTH 1 HOUR PRIOR TO APPT active Not Available Not Available No t Available ammonium lactate 12 % lotion APPLY TO FEET DAILY NEEDED active Not Available Not Available No t Available benzonatate 200 mg capsule TAKE 1 CAPSULE BY MOUTH THREE TIMES A DAY NEEDED FOR COUGH active Not Available Not Available No t Available hydrocodone 5 mg-acetamin ophen 325 mg tablet 02/17 completed Not Available Not Available Not Available meloxicam 15 mg tablet TAKE 1 TABLET BY MOUTH EVERY DAY active Not Available Not Available No t Available clindamycin HCl 150 mg capsule TAKE 1 CAPSULE BY MOUTH 4 TIMES PER DAY 02/17 completed Not Available Not Available Not Available omeprazole 40 mg capsule,del ayed release TAKE 1 CAPSULE BY MOUTH EVERY DAY active Not Available Not Available No t Available prednisolon e acetate 1 % eye drops,suspe nsion 02/17 completed Not Available Not Available Not Available lorazepam 0.5 mg tablet TAKE 1 TABLET BY MOUTH THREE TIMES A DAY NEEDED FOR ANXIETY. 02/17 completed Not Available Not Available Not Available cephalexin 500 mg capsule 11/11 completed Not Available Not Available Not Available diclofenac sodium 75 mg tablet,dylon yed release 02/17 completed Not Available Not Available Not Available benazepril 20 mg tablet TAKE 1 TABLET BY MOUTH EVERY DAY 08/18 completed Not Available Not Available Not Available hydrocodone 5 mg-acetamin ophen 500 mg tablet 02/17 completed Not Available Not Available Not Available hydrochloro thiazide 25 mg tablet TAKE 1 TABLET BY MOUTH EVERY DAY active Not Available Not Available No t Available letrozole 2.5 mg tablet TAKE 1 TABLET BY MOUTH EVERY DAY active Not Available Not Available No t Available benazepril 40 mg tablet TAKE 1 TABLET BY MOUTH EVERY DAY active Not Available Not Available No t Available methylpredn isolone 4 mg tablets in a dose pack 11/11 completed Not Available Not Available Not Available oxycodone 5 mg tablet 02/17 completed Not Available Not Available Not Available Pneumovax-2 3 25 mcg/0.5 mL injection syringe 02/17 completed Not Available Not Available Not Available escitalopra m 10 mg tablet 02/17 completed Not Available Not Available Not Available rosuvastati n 5 mg tablet TAKE 1 TABLET BY MOUTH EVERY DAY active Not Available Not Available No t Available ibandronate 150 mg tablet 02/17 completed Not Available Not Available Not Available chlorhexidi ne gluconate 0.12 % mouthwash RINSE MOUTH WITH 15ML (1 CAPFUL) FOR 30 SECONDS IN MORNING AND EVENING AFTER MEALS, THEN SPIT 02/17 completed Not Available Not Available Not Available Prolia 2018 active Not Available Not Available Not Avai lable Suprep Bowel Prep Kit 17.5 gram-3.13 gram-1.6 gram oral solution 08/13 completed Not Available Not Available Not Available [employer] COVID-19 Antigen Home Test kit Use as Directed on the Package active Not Available Not Available No t Available Vitals Date Recorded Body height Heart rate Respiratory rate Oxygen saturation Oxygen saturation in Arterial blood by Pulse oximetry Systolic blood pressure Diastolic blood pressure Provider Name and Address Organization Details Last Updated DateTime 3 154.94 cm 67 /min 14 /min 98 % 98 % 153 mm[Hg] 74 mm[Hg] Bonnie Subramanian [employer] [facility] 3 09:00:02 Date Recorded Body height Heart rate Respiratory rate Oxygen saturation Oxygen saturation in Arterial blood by Pulse oximetry Systolic blood pressure Diastolic blood pressure Provider Name and Address Organization Details Last Updated DateTime 4 154.94 cm 71 /min 14 /min 98 % 98 % 130 mm[Hg] 69 mm[Hg] Bonnie Subramanian [place] [employer] [facility] 4 09:01:03 Date Recorded Body height Heart rate Respiratory rate Oxygen saturation Oxygen saturation in Arterial blood by Pulse oximetry Systolic blood pressure Diastolic blood pressure Provider Name and Address Organization Details Last Updated DateTime 4 154.94 cm 64 /min 14 /min 98 % 98 % 138 mm[Hg] 80 mm[Hg] Bonnie Subramanian [facility] 4 09:01:09 Date Recorded Body height Heart rate Oxygen saturation Oxygen saturation in Arterial blood by Pulse oximetry Systolic blood pressure Diastolic blood pressure Provider Name and Address Organization Details Last Updated DateTime 4 154.94 cm 62 /min 99 % 99 % 136 mm[Hg] 82 mm[Hg] STAS Prasad [facility] [employer] [facility] 4 10:17:25 Date Recorded Body height Heart rate Respiratory rate Oxygen saturation Oxygen saturation in Arterial blood by Pulse oximetry Systolic blood pressure Diastolic blood pressure Provider Name and Address Organization Details Last Updated DateTime 4 154.94 cm 72 /min 14 /min 98 % 98 % 149 mm[Hg] 102 mm[Hg] Bonnie BOSS [employer] [facility] 11:01:52 Social History Question Answer Notes LastModified by Organizat ion Details LastModified Time Tobacco Smoking Status Never Smoker Not Available [facility] 08/12/2022 02:31:04 Have You Recently Traveled Abroad? No [id number] Information not available 08/12/2022 Sex: Unknown Functional Status None recorded. Mental Status None recorded. Family History Nothing Reported. Medical History Condition Response ALLERGIES/HAYFEVER Y OBESITY Y ARTHRITIS Y HYPERTENSION Y CANCER: SPECIFY Y ANEMIA/BLOOD DISORDER Y Gynecological HistoryNo gynecological history recorded. Obstetrics History GPAL:G 0 P 0 0 0 0 Past Encounters Encounter ID Performer Location Encounter Start Date Encounter Closed Date Diagnosis/Indication Diagnosis SNOMED-CT Code Diagnosis ICD10 Code Diagnosis Note [id number] _ATHENA_M IGRATION_ DEFAULT_1 _1 , 08/23/2020 00:00:00 08/26/2020 11:17:39 [id number] _ATHENA_M IGRATION_ DEFAULT_1 _1 , 11/29/2020 00:00:00 11/29/2020 10:23:13 [id number] _ATHENA_M IGRATION_ DEFAULT_1 _1 , 02/14/2021 00:00:00 02/17/2021 13:36:52 [id number] _ATHENA_M IGRATION_ DEFAULT_1 _1 , 05/16/2021 00:00:00 05/20/2021 10:38:06 [id number] _ATHENA_M IGRATION_ DEFAULT_1 _1 , 08/15/2021 00:00:00 08/19/2021 10:08:53 [id number] _ATHENA_M IGRATION_ DEFAULT_1 _1 , 11/07/2021 00:00:00 11/11/2021 11:47:18 [id number] _ATHENA_M IGRATION_ DEFAULT_1 _1 , 02/06/2022 00:00:00 02/10/2022 10:59:04 [id number] _ATHENA_M IGRATION_ DEFAULT_1 _1 , 05/15/2022 00:00:00 05/19/2022 09:54:24 [id number] Asaf Cavazos DPM [facility] [address], [address] [address] 09/08/2022 16:21:43 09/09/2022 11:53:21 Dystrophia unguium 61413388 L60.3 Nails 1 through 10 were debrided with sharp mechanical debridemen t without incident. Nails were debrided and greater than 50% length and thickness where needed. Porokeratosis 508898630 Q82.8 M79.671 M79.672 Right plantar footRx Amlactin refill Talipes planus 05667929 M21.41 M21.42 continue diabetic style insertscon tinue good shoe gear [id number] Asaf Cavazos DPM [facility] [address], [address] [address] 02/18/2023 12:01:01 02/18/2023 14:56:39 Dystrophia unguium 28516720 L60.3 Nails 1 through 10 were debrided with sharp mechanical debridemen t without incident. Nails were debrided and greater than 50% length and thickness where needed. Porokeratosis 317336902 Q82.8 M79.671 M79.672 Right plantar footRx Amlactin refill [id number] Asaf Cavazos DPM [facility] [address], [address] [address] 05/20/2023 08:52:15 05/20/2023 17:06:48 Dystrophia unguium 96805242 L60.3 Nails 1 through 10 were debrided with sharp mechanical debridemen t without incident. Nails were debrided and greater than 50% length and thickness where needed. Pain in right foot [address] 35302 80464 M79.671 soft tissue lesionreco mmend further evaluation likely plantar fibroma versus lipomapati ent denies any further treatment patient understand s this could be something more dangerous. [id number] Asaf Cavazos DPM [facility] [address], [address] [address] 08/19/2023 08:57:29 08/19/2023 10:00:26 Pain in toe 437297280 M79.676 due to below Dystrophia unguium 49207 009 L60.3 Nails 1 through 10 were debrided with sharp mechanical debridemen t without incident. Nails were debrided and greater than 50% length and thickness where needed.fol low up 3 mo as needed Foot callus 161362091 L8 4 removedoff loading and use pumas stone dailyfollo w up in 3 mo as needed Bunion 542142939 M21.61 9 cont conservati ve therapy, denies surgery [id number] Asaf Cavazos DPM [facility] [address], [place] [address] 7 11/16/2023 08:52:36 11/17/2023 13:51:39 Lymphedema of lower extremity 903340426 I89.0 continue chronic compressio n stockings and lymphedema pumps Dystrophia unguium 27583 009 L60.3 Nails 1 through 10 were debrided with sharp mechanical debridemen t without incident. Nails were debrided and greater than 50% length and thickness where needed.fol low up 3 mo as needed [id number] [facility] [address], [place] [address] 7 02/15/2024 10:15:48 02/16/2024 11:31:13 Lymphedema of lower extremity 856389280 I89.0 continue chronic compressio n stockings and lymphedema pumps Dystrophia unguium 79361 009 L60.3 Nails 1 through 10 were debrided with sharp mechanical debridemen t without incident. Nails were debrided and greater than 50% length and thickness where needed.fol low up 3 mo as needed Foot callus 688428927 L8 4 removedoff loading and use pumas stone dailyfollo w up in 3 mo as needed [id number] Asaf Cavazos DPM [facility] Pod[facility] [address], [place] [address] 7 05/16/2024 10:38:56 06/09/2024 13:39:17 Dystrophia unguium 95569377 L60.3 Nails 1 through 10 were debrided with sharp mechanical debridemen t without incident. Nails were debrided and greater than 50% length and thickness where needed.fol low up 3 mo as needed Pain in toe 593398189 M7 9.676 as above Health Concerns Section Related Observation LastModified by Organization Detai ls LastModified Time None Recorded Concern Status LastModified by Organization Details LastModified Time None Recorded Advance Directives Directive None Recorded Payers Encounter Date Sequence Insurance Name Policy Number Policy Chung Covered Member ID Chung Member ID Guarantor Name 05/20/2023 1 [employer] (MEDICARE REPLACEMENT PPO) [id number] 1 Caridad Coronadottbrianna [id number] Caridad Coronadoruth 08/19/2023 1 [employer] (MEDICARE REPLACEMENT PPO) [id number] 1 Caridad Dittman [id number] Caridad Dittman 11/16/2023 1 [employer] (MEDICARE REPLACEMENT PPO) [id number] 1 Caridad Coronadottman [id number] Caridad Dittman 02/15/2024 1 [employer] (MEDICARE REPLACEMENT PPO) [id number] 1 Caridad Coronadottman [id number] Caridad Coronadottman 05/16/2024 1 [employer] (MEDICARE REPLACEMENT PPO) [id number] 1 Caridad Coronadottman [id number] Caridad Velabrianna Notes Date Note Type Note Provider Name and Address Organization Details Recorded Time 05/20/2023 text/html . Patient is a 73-year-old female who presents the office with complaints of painful elongated toenails. Patient states she has difficulty cutting her nails and would like to have them cut. Patient states she has also recently noticed a small lump on the bottom of her right foot. Patient states that when she is wearing no shoes she can feel the small area. Patient denies any overlying skin changes. Patient states that it does not cause her any significant discomfort is just a odd feeling. I did discuss the possibilities of what the soft tissue lesion is and recommended ultrasound under which she does not want to have his she does not want surgery. Patient denies any other complaints. Asaf Cavazos, JENNIFER [address] [facility] [facility] [address], [place], [address], [facility] 05/20/2023 13:50:05 08/19/2023 text/html Patient returns for painful thick toenails. Patient is unable to cut the nails and would like to have them cut to prevent wounds and injury of the toes. Patient also has minor calluses due to bunions which cause her pain. Patient denies any wounds to the area. Patient does cont conservative therapy for the bunions and if they become painful she will return for possible surgery, but currently denies surgery. Asaf Cavaozs DPM [address], [place], [address], [employer] 08/19/2023 09:31:24 11/16/2023 text/html . Patient is a 73-year-old female who returns the office for routine foot care. Patient has chronic lymphedema to which she wears compression stockings. Patient is doing well with the stockings she denies any open wounds or infection. Patient denies any calf pain. Patient states she currently wears 30-40 mm of compression she also has lymphedema pumps at home which she utilizes to prevent significant swelling of her lower extremities. Patient overall states that she has been doing well she states she is difficulty cutting her toenails due to the thickened nature and would like to have them cut. Patient also has significant bunions of both feet but she denies wanting any surgery at this time she denies any pain to the great toes. Patient denies any other complaints. Asaf Cavazos DPM [address], [place], [address], [employer] 11/16/2023 09:37:03 02/15/2024 text/html . Patient is a 74-year-old female who returns to the office for follow-up on routine foot care with pain to her toes due to calluses. Patient states her nails are also thick and would like to have them cut as she has difficulty bending over to cut them. Patient denies any open wounds or infection she states that she continues chronic compression therapy. Patient denies any other complaints. Asaf Cavazos DPM [address], [place], [address], [facility] 02/15/2024 10:40:10 05/16/2024 text/html . Patient is a 74-year-old female who returns to the office for follow-up on routine foot care. Patient has pain to her toenails which are elongated she requests them to be cut. Patient denies any other complaints. Asaf Cavazos DPM [address] [facility] [address], [place], [address], [place] [facility] 05/16/2024 13:51:03 OBGyn Episode No OBEpisode recorded.
--- OUTSIDE RECORDS SUMMARY | 2024-08-16 10:07 | XMS_ITS | Clinical Summary ---
Author Organization [facility] Address [address] [place] [address] Care Team Providers Care [employer] Supervisor Name Role Phone Neo Briones MD Primary Care Provider [phone] Source Comments [facility],non-owned Affiliates and Associated Physician Practices is amultiple site organization consisting of ambulatory clinics and hospital sitesin [place], [place], [place] and [place]. This disclosure is being madepursuant to the Care Everywhere program and may not contain all information available regarding this patient. Last updated 18.[facility] Allergies Active Allergy Reactions Criticality Noted Date [...] age to complete this topic Care Teams [employer] Supervisor Relationship Specialty Start Date End Date Noe Briones MD [address] [place] [address] PCP - General 01/13/18
--- OUTSIDE RECORDS SUMMARY | 2024-08-16 10:07 | XMS_ITS | Clinical Summary ---
Author Organization [facility] Address [address] [place] [address] Phone Care Team Providers Care Principal Investigator Name Role Phone Neo Briones MD Primary Care Provider [phone] Allergies Active Allergy Reactions Criticality Noted Date Comments Amoxicillin-Pot Clavulanate Hives High 08/12/19 12 augmentin Medications Drcp-Uxtj-BPL# 9-S-Veox-Adalberto-B or [id number] mg Tablet Take 2 Tabs [...] 24 mm invasive mammary, 0/6 LN ER(+) TX(+) Her (-) Surgeon: Yvette Surgery: 07/22/18 left lump/SLN Medical Oncologist: Nilo Chemotherapy: none Oncotype RS=15, 4% risk Radiation Oncologist: Lorne Radiation: completed 10/10/18 Hormonal therapy: letrozole starting October 2018 Osteopenia 02/19/2016 Encounters Date Type Department Care Team Description 08/02/2024 External Device Data STL ABSTRACTION Provider, Abstract 07/22/2024 [facility] Oncology and Hematology [facility] [address] [facility] [address] [place] [address] Marylin Corcoran MD 07/11/2024 External Device Data STL ABSTRACTION Provider, Abstract from Last 3 Months Family History Medical [...] on file Legal Sex Female 5:44 AM BUSINESS PERFORMANCE ADVISOR Gender Identity Not on file Sexual Orientation Not on file Occupation Industry Job Start Date Job End Date Not on file Not on file Not on file Not on file Last Filed Vital Signs Vital Sign Reading Time Taken Comments Blood Pressure 139/79 05/17/2024 9:29 AM BUSINESS PERFORMANCE ADVISOR Pulse 76 05/17/2024 9:29 AM BUSINESS PERFORMANCE ADVISOR Temperature 36.8 C (98.2 F) 05/17/2024 9:29 AM BUSINESS PERFORMANCE ADVISOR Respiratory Rate 17 10/29/2022 9:08 AM CDT Oxygen Saturation 99% 05/17/2024 9:29 AM BUSINESS PERFORMANCE ADVISOR Inhaled Oxygen Concentration - - Weight 99.3 kg (218 lb 14.4 oz) 05/17/2024 9:29 AM BUSINESS PERFORMANCE ADVISOR Height 153 cm (5' 0.25 ) 05/17/2024 9:29 AM BUSINESS PERFORMANCE ADVISOR Body Mass Index 42.4 05/17/2024 9:29 AM BUSINESS PERFORMANCE ADVISOR Plan of Treatment Upcoming Encounters Date Type Department Care Team (Late st Contact Info) Description 08/22/2024 10:45 AM CDT Appointment [facility] Domenico James [address] [place] [phone] Liliane Cruz, WELDING MACHINE OPERATOR [place] [address] [place] [phone] 08/22/2024 11:45 AM CDT Office Visit [facility] Breast Surgery Domenico James [address] [facility] [address] [place] [phone] Liliane Cruz, WELDING MACHINE OPERATOR [place] [address] [facility] [address] [place] [address] 09/27/2024 10:30 AM CDT Office Visit [facility] ARTIST SCIENTIFIC - [address] [facility] [address] [address] Ayana Dillon NP [address] [facility] [address] [place] [address] 11/20/2024 10:00 AM CDT Office Visit [facility] Oncology and Hematology Domenico James [address] [facility] [address] [place] [address] Marylin Corcoran MD [address] [place], [place] [id number] 11/20/2024 10:30 AM CDT Appointment [facility] [address] [facility] [address] [place] [address] Marylin Corcoran MD [address] [facility] [address] [place] [address] 1, Injection Health Maintenance Due Date Last Done Comments DTAP/TDAP/TD VACCINES (1 - Tdap) 01/19/1971 COLORECTAL SCREENING 01/19/1997 FIT-DNA Q 3 years 01/19/1997 Flex Sig/CT Colonography Q 5 years 01/19/1997 PNEUMOCOCCAL VACCINE 50+ YEA RS (1 of 1 - PCV) 01/19/2002 ZOSTER VACCINE (1 of 2) 01/19/2002 RSV VACCINE (60+ or ) (1 - Risk 60-74 years 1-dose series) 2012 Colorectal Cancer Screening 02/18/2017 FIT/FOBT Q 1 year 02/18/2017 02/19/2016, , 01/31/2014, Additional history exists INFLUENZA VACCINE (#1) 2024 Medicare Advantage (MS) Preventative Visit/Annual Wellness Visit 06/14/2024 09/27/2023, 07/09/2022, 07/08/2021, Additional history exists BREAST CANCER SCREENING 07/29/2024 07/29/19 24, 07/28/2022, 07/15/2021, Additional history exists OSTEOPOROSIS SCREENING 09/10/2024 , 09/06/2020, 08/31/2018, Additional history exists Procedures Procedure Name Priority Date/Time Associated Diagnosis Comments MAMMO 3D JACEK DIAGNOSTIC BILAT W OR WO CAD Routine 07/29/2023 10:40 AM BUSINESS PERFORMANCE ADVISOR Malignant neoplasm of lower-outer quadrant of left breast of female, estrogen receptor positive (CMS/HCC) XR DEXA BONE DENSITY AXIAL 1 OR MORE SITES Routine 09/10/2022 10:32 AM CDT Osteopenia of multiple sites POC OCCULT BLOOD, IMMUNO, QUAL, STOOL Routine 02/19/2016 12:29 PM CDT Screening for malignant neoplasm of the rectum from Last 3 Months or Most Recently Relevant to Health Maintenance Results * MAMMO DIAG BILAT 3D JACEK W OR WO CAD (07/29/2023 10:40 AM BUSINESS PERFORMANCE ADVISOR) Anatomical Region Laterality Modality Breast Bilateral Mammography 07/29/2023 10:4 0 AM BUSINESS PERFORMANCE ADVISOR Impressions 07/29/2023 10:53 AM BUSINESS PERFORMANCE ADVISOR IMPRESSION: No mammographic evidence of malignancy in the bilateral breasts. Routine mammography is recommended in 1 year. OVERALL FINAL ASSESSMENT: BI-RADS CATEGORY 2 - Benign findings DICTATION LOCATION: Amrita James Narrative 07/29/2023 10:53 AM BUSINESS PERFORMANCE ADVISOR EXAMINATION: BILATERAL DIAGNOSTIC DIGITAL MAMMOGRAPHY WITH TOMOSYNTHESIS [...] CATEGORY 2 - Benign findings DICTATION LOCATION: [facility] Tiffany Crawford MD MAMMO ORDERABLES Final Result * XR DEXA BONE DENSITY AXIAL 1 OR MORE SITES (09/10/2022 10:32 AM CDT) Anatomical Region Laterality Modality Digital Radiogra phy 09/10/2022 10:3 3 AM CDT Impressions 09/10/2022 10:37 AM CDT IMPRESSION: This is a summary page. Please refer to the complete detailed report found in the Imaging Section of the [facility] EMR. Osteopenia. Lumbar Spine: T-Score: -0.9 Left [...] by Dr. Chino Robertson MD DICTATION LOCATION: 09/10/2022 10:37 AM CDT EXAMINATION: BONE DENSITY STUDY (DXA) DATE: 09/10/2022 10:32 AM HISTORY: 72 years Female. Postmenopausal. PROCEDURE: Planar images of the lumbar spine, hip(s) and forearm(s) using a [employer] DEXA scanner for bone mineral density determination [...] lumbar spine, hip(s) and forearm(s) using a [employer] DEXA scanner for bone mineral density determination [...] found in the Imaging Section of the [facility] EMR. Osteopenia. Lumbar Spine: T-Score: -0.9 Left [...] Most Recently Relevant to Health Maintenance Insurance TNA O MCR Care Teams Principal Investigator Relationship Specialty Start Date End Date Neo Briones MD [address] [facility] [address] [place] [address] PCP - General Family Practice 07/13/18
--- OUTSIDE RECORDS SUMMARY | 2024-08-16 10:07 | XMS_ITS | Encounter Summary ---
Author Organization [facility] Address [address] [place] [address] Care Team Providers Care Fourth Hand Name Role Phone Neo Briones MD Primary Care Provider [phone] Encounter Details Date Type Department Care Team (Late st Contact Info) Description 08/17/2018 Chart Note [facility] Radiation Therapy [address] [place] [address] [place] [address] [place] [address] Social History Tobacco Use Types Packs/Day Years Used Date Smoking Tobacco: Never Smokeless Tobacco: Never Alcohol Use Standard Drinks/Week Comments No 0 (1 standard drink = 0.6 oz pur e alcohol) Comments No Sex and Gender Information Value Date Recorded Sex Assigned at Not on file Legal Sex Female 5:44 AM SPORTS PHYSIOTHERAPIST Gender Identity Not on file Sexual Orientation Not on file Occupation Industry Job Start Date Job End Date Not on file Not on file Not on file Not on file documented as of this encounter Plan of Treatment Upcoming Encounters Date Type Department Care Team (Late st Contact Info) Description 08/22/2024 10:45 AM CDT Appointment [facility] [address]omenico James [address] [place] [phone] Liliane Cruz, AIR TUCKER [address] [place] [address] 08/22/2024 11:45 AM CDT Office Visit [facility] Breast Surgery [place] [address] [address] [facility] [address] [place] [address] Liliane Cruz, AIR TUCKER [address] [facility] [address] [place] [address] 09/27/2024 10:30 AM CDT Office Visit [facility] SUPERVISOR MICROBIOLOGY TECHNOLOGISTS - [address] [address] Ayana Dillon NP [address] [place] [address] 11/20/2024 10:00 AM CDT Office Visit [facility] Oncology and Hematology Domenicohyun James [address] [facility] [address] [place] [address] Marylin Corcoran MD [address] [place], [place] [address] 11/20/2024 10:30 AM CDT Appointment [facility] [address] [facility] [address] [place] [phone] Marylin Corcoran MD [address] [place], [place] [address] 1, Injection documented as of this encounter Visit Diagnoses Not on filedocumented in this encounter Care Teams Fourth Hand Relationship Specialty Start Date End Date Neo Briones MD [address] [place] [address] PCP - General Family Practice 07/13/18 documented as of this encounter
--- OUTSIDE RECORDS SUMMARY | 2024-08-16 10:07 | XMS_ITS | Encounter Summary ---
Author Organization [facility] Address [address] [place] [address] Care Team Providers Care Wildlife Forensic Geneticist Name Role Phone Neo Briones MD Primary Care Provider [phone] Encounter Details Date Type Department Care Team (Latest Contact Info) Description 11/12/2008 Outpatient Historical [facility] Bassam Guo MD [address] [facility] [address] [place] [address] Calculus of GB w/ Other Cystitis Social History Tobacco Use Types Packs/Day Years Used Date Smoking Tobacco: Never Assessed Comments Unknown Sex and Gender Information Value Date Recorded Sex Assigned at Not on file Legal Sex Female 5:44 AM VISION MIXER Gender Identity Not on file Sexual Orientation Not on file documented as of this encounter Plan of Treatment Upcoming Encounters Date Type Department Care Team (Late st Contact Info) Description 08/22/2024 10:45 AM CDT Appointment [facility] [address] [place] [address] Liliane Cruz, FAMILY ASSESSMENT WORKER [address] [place] [address] 08/22/2024 11:45 AM CDT Office Visit [facility] Breast Surgery [place] [address] [place] [address] Liliane Cruz, FAMILY ASSESSMENT WORKER [address] [place] [address] 09/27/2024 10:30 AM CDT Office Visit [facility] MOBILE HOME MECHANIC - [address] [facility] [address] [address] Ayana Dillon NP [address] [facility] [address] [place] [address] 11/20/2024 10:00 AM CDT Office Visit [facility] Oncology and Hematology [facility] [address] [facility] [address] [place] [address] Marylin Corcoran MD [address] [facility] [address] [place] [address] 11/20/2024 10:30 AM CDT Appointment [facility] [address] [facility] [address] [place] [address] Marylin Corcoran MD [address] [facility] [address] [place] [address] Injection documented as of this encounter Procedures Procedure Name Priority Date/Time Associated Diagnosis Comments PATHOLOGY Routine 11/27/2008 8:34 AM CDT CBC WITH DIFFERENTIAL Routine 11/23/2008 1:50 PM CDT COMPREHENSIVE METABOLIC PANEL Routine 11/23/2008 1:50 PM CDT documented in this encounter Results * PATHOLOGY (11/27/2008 8:34 AM CDT) FINAL REPORT [facility] [address] [place], [place] [address] Patient: CARIDAD CLARK : 1950 Procedure Date: 11/27/2008 Accession Date: 11/27/2008 Case No: [id number] Ordering Dr: BASSAM GUO Case types AW, BW, FW, NW and SH are performed by [facility] [place], [place] SURGICAL PATHOLOGY & NON-GYNECOLOGIC CYTOPATHOLOGY REPORT [...] 0.1 cm. The cystic duct margin and veterans contact representative sections of gallbladder are submitted in block A1. M[facility]/ANGELIQUE 11.27.2008 01:13 pm Microscopic: The section is labeled [id number], Caridad Clark The sections of the gallbladder [...] CDT) CO2 27 22 - 30 mmol/L [facility] TOTAL PROTEIN 6.5 6.3 - 8.6 g/dL [facility] POTASSIUM 3.8 3.5 - 4.9 mmol/L [facility] GLUCOSE 75 65 - 99 mg/dL [facility] AST 22 12 - 32 U/L [facility] CALCIUM 9.5 8.6 - 10.2 mg/dL [facility] ALBUMIN 4.3 3.4 - 4.8 g/dL [facility] CHLORIDE 103 96 - 108 mmol/L [facility] CREATININE 0.85 0.51 - 0.95 mg/dL [facility] ALT 15 0 - 31 U/L [facility] BUN 15 6 - 20 mg/dL [facility] SODIUM 139 135 - 145 mmol/L [facility] ALKALINE PHOSPHATASE 71 35 - 104 U/L [facility] BILIRUBIN TOTAL 0.5 0.2 - 1.0 mg/dL [facility] GFR, >60 >=60 mL/min/1.7 sq meter [facility] GFR >60 >=60 mL/min/1.7 sq meter [facility] Comment: Modification of Diet in Renal Disease (MDRD) study formula. Estimated GFR rate interpretative information for both Americans and non- Americans is available on the [facility] Intranet at: [email or web address] Select: Lab Policies and Procedures Select: Reference Ranges - GFR 11/23/2008 1:50 PM CDT 11/23/2008 3:43 PM CDT Bassam Guo MD CHEMISTRY ORDERABLES Edited INTERFACE SYSTEM Refer to clinic/hospital department [facility] CLIA# [id number] [address] [place] [address] * CBC WITH DIFFERENTIAL (11/23/2008 1:50 PM CDT) WBC 5.2 4.0 - 9.8 K/uL [facility] MCH 30.9 27.2 - 32.6 pg [facility] MPV 11.4 9.3 - 12.4 fL [facility] HEMATOCRIT 41.6 35.5 - 44.0 % [facility] RDW-STDEV 41.7 37.1 - 48.7 fL [facility] RBC 4.53 3.90 - 4.90 M/uL [facility] MCHC 33.7 31.5 - 35.5 % [facility] MCV 91.8 82.0 - 99.0 fL [facility] PLATELETS 191 140 - 350 K/uL [facility] HEMOGLOBIN 14.0 11.8 - 14.8 g/dL [facility] RDW 12.4 11.5 - 14.5 % [facility] NEUTROPHILS 57 45 - 70 % [facility] BASOPHILS 0 0 - 2 % [facility] BASOPHILS ABSOLUTE 0.02 0.00 - 0.20 K/uL [facility] LYMPHOCYTES 31 16 - 45 % [facility] MONOCYTE ABSOLUTE 0.47 0.10 - 1.30 K/uL [facility] NEUTROPHIL ABSOLUTE 2.94 1.90 - 7.00 K/uL [facility] MONOCYTES 9 3 - 13 % [facility] EOSINOPHILS 3 0 - 7 % [facility] EOSINOPHIL ABSOLUTE 0.14 0.00 - 0.70 K/uL [facility] LYMPHOCYTE ABSOLUTE 1.62 0.70 - 4.50 K/uL [facility] 11/23/2008 1:50 PM CDT 11/23/2008 3:43 PM CDT us Bassam Guo MD HEMATOLOGY ORDERABLES Edited INTERFACE SYSTEM Refer to clinic/hospital department [facility] CLIA# [id number] [address] [place] [address] documented in this encounter Visit Diagnoses Diagnosis Calculus of gallbladder with other cholecystitis, without mention of obstruction documented in this encounter Care Teams Wildlife Forensic Geneticist Relationship Specialty Start Date End Date Neo Briones MD [address] [facility] [address] [place] [address] PCP - General Family Practice 07/13/18 documented as of this encounter
--- OUTSIDE RECORDS SUMMARY | 2024-08-16 10:07 | XMS_ITS | Referral Summary ---
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 Pain in [...] on file Legal Sex Female 3:34 AM RN LPN CNA Gender Identity Not on file Sexual Orientation [...] on file Medical Devices Implanted Type Area Branch Or Department Chief Librarian Device Identifier Shelf Expiration Date Model / Serial / Lot [employer] [id number] Comprehensive Taper Adapter 25mm Mini Baseplate Glenoid Reverse - [id number] Implanted:Qty: 1 on 01/05/2019 by Abe Banuelos MD at [facility] Right: Shoulder [employer] [id number] 11/30/2028 [id number] / / [id number] [employer] [id number] Comprehensive 6.5mm 25mm Central Hexagonal 3.5mm Screw Bone - [id number] Implanted:Qty: 1 on 01/05/2019 by Abe Banuelos MD at [facility] Right: Shoulder [employer] [id number] 12/02/2028 [id number] / / [id number] [employer] [id number] Comprehensive 4.75mm 20mm Fix Angle Lock Hexagonal 3.5mm Screw - [id number] Implanted:Qty: 1 on 01/05/2019 by Abe Banuelos MD at [facility] Right: Shoulder [employer] [id number] 10/28/2028 [id number] / / [id number] [employer] 185160 Comprehensive 4.75mm 30mm Fix Angle Lock Hexagonal 3.5mm Screw - [id number] Implanted:Qty: 1 on 01/05/2019 by Abe Banuelos MD at [facility] Right: Shoulder [employer] [id number] 11/28/2028 [id number] / / [id number] [employer] [id number] Comprehensive Versa-Dial 36mm Glenosphere Color Coded Shoulder +3 - [id number] Implanted:Qty: 1 on 01/05/2019 by Abe Banuelos MD at [facility] Right: Shoulder [employer] [id number] 12/01/2028 [id number] / / [id number] [employer] [id number] 36mm Reverse Humerus 7d +0mm Offset Standard Liner Shoulder - [id number] Implanted:Qty: 1 on 01/05/2019 by Abe Banuelos MD at [facility] Right: Shoulder [employer] [id number] 12/11/2026 [id number] / / [id number] [employer] [id number] 10mm 130mm Shoulder Stem Humeral Trabecular Metal Tivanium - [id number] Implanted:Qty: 1 on 01/05/2019 by Abe Banuelos MD at [facility] Right: Shoulder [employer] [id number] 09/11/2028 [id number] / / [id number] Explanted Type Area Branch Or Department Chief Librarian Device Identifier Shelf Expiration Date Model / Serial / Lot [employer] [id number] Steinmann 3/32in 9in 2 Trocar Pin Fixation Nonsterile - [id number] Explanted:Qty: 1 on 01/05/2019 by Abe Banuelos MD at [facility] Right: Shoulder [employer] [id number] S / / Insurance MEDICARE SOLUTIONS MEDICARE SOLUTIONS Advance Directives For more information, please contact: [phone] * Full Code (Latest Code Status on File) Date Activated Date Inactivated Comments 01/05/2019 6:26 PM 01/06/2019 6:32 PM * Full Code Date Activated Date Inactivated Comments 01/04/2019 9:18 AM 01/04/2019 3:45 PM Care Teams Agricultural Aircraft Pilot Relationship Specialty Start Date End Date Neo Briones MD [address] [place] [address] PCP - General 08/12/16
== END 2024-08-16 09:25 | disposition home or self-care (01) ==
LOC: ANHAUDASC 09:26
PROVIDERS: PCP Family Medicine; Visit Provider Family Medicine
DX: H90.3 Sensorineural hearing loss, bilateral (principal)
CPT/HCPCS: 92557; 92567